=== PATIENT | female | born 1945 | race Caucasian/White ===

== ENCOUNTER 2019-08-26 15:09 | Emergency (ER) | payer OTHER ==
--- NOTE | 2019-08-26 15:46 | RAD REPORT ---
EXAM DESCRIPTION: RAD - Chest Single View - 08/26/2019 3:37 pm CLINICAL HISTORY: Left-sided chest pain COMPARISON: October 2014 TECHNIQUE: AP portable chest image was obtained 1530 hours . FINDINGS: Lung volumes are low. No failure, infiltrate or mass identifiable. Heart and vasculature a re normal. No measurable pleural effusion and no pneumothorax. No acute bony abnormality seen. No acu te aortic findings suspected. IMPRESSION: No acute cardiopulmonary process.
[2019-08-26] MEDS ORDERED: NA CHLORIDE 0.9% 1,000 ML ONE (15:51)
[2019-08-26] MEDS ORDERED: ASPIRIN EC 81 MG TAB PO ONE (15:51)
[2019-08-26 15:52] LABS: Absolute Lymphocytes (CBC) 1.9 K/uL (0.7-4.9); Basophils % 0.6 % (0-1.3); Hematocrit 38.4 % (36.0-45.0); Lymphocytes % 28.8 % (15.3-44.8); MPV 9.4 fL (7.6-11.3); RBC Red Blood Cell Count 4.05 M/uL (3.86-4.86)
[2019-08-26 15:53] LABS: Protime INR 0.96
[2019-08-26 16:14] LABS: ALT/SGPT 18 U/L (12-78); AST/SGOT 16 U/L (15-37); Albumin 3.9 g/dL (3.4-5.0); Alkaline Phosphatase 63 U/L (45-117); BUN Blood Urea Nitrogen 15 mg/dL (7-18); Bicarbonate 29 mmol/L (21-32); Bilirubin Direct 0.1 mg/dL (0-0.2); Bilirubin Total 0.3 mg/dL (0.2-1.0); Glucose Level 130 mg/dL (74-106); NT PRO-BNP 113 pg/mL (<125); Potassium 3.4 mmol/L (3.5-5.1); Sodium Level 143 mmol/L (136-145); Troponin (Emerg Dept Use Only) < 0.02 ng/mL (0.0-0.045)
[2019-08-26] MEDS ORDERED: MORPHINE 2 MG/ML SYR ONE (16:42)
[2019-08-26] MEDS ORDERED: KETOROLAC 30 MG/ML INJ ONE (16:42)
[2019-08-26] MEDS ORDERED: ONDANSETRON 4 MG/2 ML VIAL ONE (16:42)
--- NOTE | 2019-08-26 17:08 | EKG ---
Test Date: 2019-08-26 Test Time: 15:21:48 Parking Analyst: NARCISO MEASUREMENT RESULTS: Intervals: Rate: 67 RI: 198 QRSD: 92 QT: 398 QTc: 420 [place]: P: 68 RI: 198 QRS: -11 T: 53 INTERPRETIVE STATEMENTS: Sinus rhythm with premature supraventricular complexes T wave abnormality, consider anterior ischemia Abnormal ECG No previous ECG available for comparison Electronically Signed On 08-26-19 17:08:22 CDT by Yifan Yin
[2019-08-26] MEDS ORDERED: POTASSIUM 25 MEQ EFFERV TAB ONE (17:14)
--- NOTE | 2019-08-26 17:46 | RAD REPORT ---
EXAM DESCRIPTION: CT - Angio Aorta For Dissection - 08/26/2019 5:23 pm CLINICAL HISTORY: CHEST PAIN COMPARISON: Chest films same date TECHNIQUE: Dynamically enhanced 3 mm thick images of the chest, abdomen, and upper pelvis were obtai kilo during administration of approximately 150mL Isovue 370 IV contrast. Sagittal and coronal reconst ruction images were generated using MIP and reviewed. Exam utilizes a protocol to evaluate entire cou rse of the aorta. All CT scans are performed using dose optimization technique as appropriate and may include automated exposure control or mA/KV adjustment according to patient size. FINDINGS: Aorta is normal in diameter with no dissection or other acute aortic findings. Reconstruct ion images show no significant findings. Pulmonary arteries are normal. No cardiomegaly, pericardial thickening or pericardial effusion. No mass or infiltrate in the lung parenchyma. No pleural thickening, pleural effusion or pneumothorax . No abnormal mediastinal or hilar mass or lymphadenopathy seen. No chest wall mass or abnormal axillar y lymphadenopathy. Celiac, SMA and renal arteries show no suspicious findings. Solid abdominal viscera and bowel show no significant findings. No mass or abnormal lymphadenopathy. No free air, free fluid or inflammatory stranding. No urinary bladder abnormality. Uterus is absent. No adnexal abnormality. Bony degenerative change seen. No acute or destructive bone process. IMPRESSION: Negative CT scan of the aorta. No other significant findings on chest, abdomen and upper pelvis examination.
--- NOTE | 2019-08-26 17:54 | EDPHYS ---
Physician Documentation [facility] Name: Lyudmila Carranza Age: 73 yrs Sex: Female : 1945 Arrival Date: 08/26/2019 Time: 15:10 Bed 27 Private MD: Nicole Zabala F ED Physician Chandra Hoskins HPI: 08/26 16:36 This 73 yrs old Female presents to ER via Ambulatory with complaints of Chest nano Pain. 16:36 The patient or guardian reports chest pain that is located primarily in the anterior nano chest wall, left. Historical: - Allergies: 15:23 Demerol; la1 - Home Meds: 15:23 amlodipine 5 mg tab 1 tab once daily [Active]; pravastatin 80 mg oral tab 1 tab once la1 daily [Active]; - PMHx: 15:23 Hypertension; High Cholesterol; la1 - Immunization history:: Adult Immunizations up to date. - Social history:: Smoking status: Patient/guardian denies using tobacco. - Ebola Screening: : No symptoms or risks identified at this time. ROS: 16:36 Constitutional: Negative for fever, chills, and weight loss, Eyes: Negative for injury, nano pain, redness, and discharge, ENT: Negative for injury, pain, and discharge, Neck: Negative for injury, pain, and swelling, Cardiovascular: Negative for chest pain, palpitations, and edema, Abdomen/GI: Negative for abdominal pain, nausea, vomiting, diarrhea, and constipation, : Negative for injury, bleeding, discharge, and swelling, MS/Extremity: Negative for injury and deformity, Skin: Negative for injury, rash, and discoloration, Neuro: Negative for headache, weakness, numbness, tingling, and seizure, Psych: Negative for depression, anxiety, suicide ideation, homicidal ideation, and hallucinations, Allergy/Immunology: Negative for hives, rash, and allergies, Endocrine: Negative for neck swelling, polydipsia, polyuria, polyphagia, and marked weight changes, Hematologic/Lymphatic: Negative for swollen nodes, abnormal bleeding, and unusual bruising. 16:36 Respiratory: Positive for 16:36 Abdomen/GI: Negative for abdominal pain. 16:36 Back: Positive for pain at rest, pain with movement, of the left scapular area and thoracic area. Exam: 16:36 Constitutional: This is a well developed, well nourished patient who is awake, alert, nano and in no acute distress. Head/Face: Normocephalic, atraumatic. Eyes: Pupils equal round and reactive to light, extra-ocular motions intact. Lids and lashes normal. Conjunctiva and sclera are non-icteric and not injected. Cornea within normal limits. Periorbital areas with no swelling, redness, or edema. ENT: Nares patent. No nasal discharge, no septal abnormalities noted. Tympanic membranes are normal and external auditory canals are clear. Oropharynx with no redness, swelling, or masses, exudates, or evidence of obstruction, uvula midline. Mucous membranes moist. Neck: Trachea midline, no thyromegaly or masses palpated, and no cervical lymphadenopathy. Supple, full range of motion without nuchal rigidity, or vertebral point tenderness. No Meningismus. Cardiovascular: Regular rate and rhythm with a normal S1 and S2. No gallops, murmurs, or rubs. Normal PMI, no JVD. No pulse deficits. Respiratory: Lungs have equal breath sounds bilaterally, clear to auscultation and percussion. No rales, rhonchi or wheezes noted. No increased work of breathing, no retractions or nasal flaring. Abdomen/GI: Soft, non-tender, with normal bowel sounds. No distension or tympany. No guarding or rebound. No evidence of tenderness throughout. Back: No spinal tenderness. No costovertebral tenderness. Full range of motion. Female : Normal external genitalia. Skin: Warm, dry with normal turgor. Normal color with no rashes, no lesions, and no evidence of cellulitis. MS/ Extremity: Pulses equal, no cyanosis. Neurovascular intact. Full, normal range of motion. Neuro: Awake and alert, GCS 15, oriented to person, place, time, and situation. Cranial nerves II-XII grossly intact. Motor strength 5/5 in all extremities. Sensory grossly intact. Cerebellar exam normal. Normal gait. Psych: Awake, alert, with orientation to person, place and time. Behavior, mood, and affect are within normal limits. 16:36 Chest/axilla: Exam negative for tenderness, Inspection: normal, Palpation: tenderness, that is mild, that is moderate, of the left lateral posterior chest. 19:27 Cardiovascular: Rate: normal, Rhythm: regular, Pulses: no pulse deficits are nano appreciated, Heart sounds: normal, normal S1and S2, no S3 or S4, no murmur, no rub, no gallop, Edema: is not appreciated, JVD: is not appreciated. 19:27 Musculoskeletal/extremity: DVT Exam: No signs of deep vein thrombosis. no pain, no swelling, no tenderness, negative Homans' sign noted on exam, no appreciated bluish discoloration, no erythema, no increased warmth. Vital Signs: 15:24 BP 168 / 84; Pulse 78; Resp 16; Temp 97.2; Pulse Ox 100% on R/A; Weight 68.04 kg; la1 Height 5 ft. 2 in. (157.48 cm); 16:29 BP 156 / 72; Pulse 68; Resp 17 S; Pulse Ox 98% on R/A; ca1 17:50 BP 126 / 66; Pulse 67; Resp 14 S; Pulse Ox 100% ; aj1 18:21 BP 139 / 68; Pulse 63; Resp 17; Pulse Ox 98% on R/A; ca1 19:36 BP 134 / 69; Pulse 64; Resp 17 S; Pulse Ox 100% on R/A; ca1 15:24 Body Mass Index 27.44 (68.04 kg, 157.48 cm) la1 MDM: 15:45 Patient medically screened. [facility] 16:38 Data reviewed: vital signs, nurses notes, lab test result(s), EKG, radiologic studies. [facility] 08/26 15:21 Order name: Basic Metabolic Panel; Complete Time: 16:34 [facility] 08/26 15:21 Order name: CBC with Diff; Complete Time: 16:34 [facility] 08/26 15:21 Order name: LFT's; Complete Time: 16:34 [facility] 08/26 15:21 Order name: Magnesium; Complete Time: 16:34 [facility] 08/26 15:21 Order name: NT PRO-BNP; Complete Time: 16:34 [facility] 08/26 15:21 Order name: PT-INR; Complete Time: 16:34 [facility] 08/26 15:21 Order name: Troponin (emerg Dept Use Only); Complete Time: 16:34 [facility] 08/26 15:21 Order name: XRAY Chest (1 view); Complete Time: 16:34 [facility] 08/26 15:45 Order name: D-Dimer; Complete Time: 16:34 [facility] 08/26 16:44 Order name: Troponin (emerg Dept Use Only): 500pm; Complete Time: 17:43 [facility] 08/26 17:24 Order name: Urine Culture [facility] 08/26 17:48 Order name: Urine Dipstick--Ancillary (enter results); Complete Time: 18:58 08/26 18:35 Order name: Troponin (emerg Dept Use Only); Complete Time: 19:19 08/26 15:21 Order name: EKG; Complete Time: 15:22 [facility] 08/26 15:21 Order name: Cardiac monitoring; Complete Time: 15:29 [facility] 08/26 15:21 Order name: EKG - Nurse/Tech; Complete Time: 15:24 [facility] 08/26 15:21 Order name: IV Saline Lock; Complete Time: 15:41 [facility] 08/26 15:21 Order name: Labs collected and sent; Complete Time: 15:41 [facility] 08/26 16:40 Order name: CT Aorta for Dissection: pe and dissection; Complete Time: 18:58 [facility] 08/26 17:57 Order name: EKG; Complete Time: 17:58 [facility] 08/26 18:35 Order name: EKG; Complete Time: 18:35 [facility] 08/26 15:21 Order name: O2 Per Protocol; Complete Time: 15:30 [facility] 08/26 15:21 Order name: O2 Sat Monitoring; Complete Time: 15:30 [facility] 08/26 17:24 Order name: Urine Dipstick-Ancillary (obtain specimen); Complete Time: 17:48 [facility] 08/26 17:57 Order name: EKG - Nurse/Tech; Complete Time: 18:03 [facility] 08/26 18:35 Order name: EKG - Nurse/Tech; Complete Time: 19:11 [facility] Administered Medications: 15:50 Drug: NS 0.9% 1000 ml Route: IV; Rate: 125 ml/hr; Site: right antecubital; ca1 19:38 Follow up: IV Status: Order to discontinue infusion ca1 15:50 Drug: Aspirin Chewable Tablet 162 mg Route: PO; ca1 16:30 Follow up: Response: No adverse reaction ca1 16:46 Drug: Zofran 4 mg Route: IVP; Site: right antecubital; ca1 17:16 Follow up: Response: No adverse reaction; Nausea is decreased ca1 16:48 Drug: morphine 2 mg Route: IVP; Site: right antecubital; ca1 17:16 Follow up: Response: No adverse reaction; Pain is decreased ca1 16:51 Drug: TORadol 30 mg Route: IVP; Site: right antecubital; ca1 17:16 Follow up: Response: No adverse reaction; Pain is decreased ca1 17:40 Drug: Potassium Effervescent Tablet 25 mEq Route: PO; ca1 18:02 Follow up: Response: No adverse reaction ca1 19:35 Drug: ToPROL XL 25 mg Route: PO; ca1 19:54 Follow up: Response: No adverse reaction ca1 19:53 Not Given (Patient Refused): Valium 5 mg PO once ca1 Disposition: 08/26/19 19:23 Discharged to Home. Impression: Chest pain, unspecified - wall, Pleurisy, Essential (primary) hypertension, Hypokalemia. - Condition is Stable. - Discharge Instructions: Nonspecific Chest Pain, Chest Wall Pain, Potassium Content of Foods, Hypertension, Nonspecific Chest Pain, Vqck-aw-Scfr, Hypertension, Xdcb-zw-Pzra, How to Take Your Blood Pressure, Fvvm-gn-Lgen, Aspirin and Your Heart, Pleurisy, Yyri-jy-Mkjv, Hypokalemia, Managing Your Hypertension. - Prescriptions for Ibuprofen 600 mg Oral Tablet - take 1 tablet by ORAL route every 6 hours As needed take with food; 24 tablet. Tylenol- Codeine #3 300-30 mg Oral Tablet - take 2 tablets by ORAL route every 6 hours As needed; 24 tablet. Valium 5 mg Oral Tablet - take 1 tablet by ORAL route every 8 hours As needed; 20 tablet. Toprol XL 25 mg Oral Tablet - take 1 tablet by ORAL route once daily; 20 tablet. - Medication Reconciliation Form, Thank You Letter, Antibiotic Education, Prescription Opioid Use form. - Follow up: Nicole Zabala; When: 2 - 3 days; Reason: Recheck today's complaints, Continuance of care, Re-evaluation by your physician. Follow up: Marcos Babb MD; When: 2 - 3 days; Reason: Recheck today's complaints, Re-evaluation by your physician. - Problem is new. - Symptoms have improved. Signatures: Dispatcher [employer] EDChandra Camarena MD MD cha Attema, Lee, RN RN la1 Darling Saavedra RN RN ca1 Corrections: (The following items were deleted from the chart) 16:42 16:36 Angio Aorta For Dissection+CT.YOANDY ordered. [facility] 17:53 17:53 08/26/2019 17:53 Discharged to Home. Impression: Chest pain, unspecified - wall; nano Pleurisy; Essential (primary) hypertension; Hypokalemia. Condition is Stable. Discharge Instructions: Nonspecific Chest Pain, Chest Wall Pain, Hypertension, Chest Wall Pain, Rtqn-po-Hpir, Nonspecific Chest Pain, Hder-do-Gcej, Hypertension, Bnvp-jg-Gvde, How to Take Your Blood Pressure, Dvbf-cd-Wgvb, Aspirin and Your Heart, Managing Your Hypertension, Potassium Content of Foods, Hypokalemia. Prescriptions for Ibuprofen 600 mg Oral Tablet - take 1 tablet by ORAL route every 6 hours As needed take with food; 24 tablet, Tylenol-Codeine #3 300-30 mg Oral Tablet - take 2 tablets by ORAL route every 6 hours As needed; 24 tablet, Valium 5 mg Oral Tablet - take 1 tablet by ORAL route every 8 hours As needed; 20 tablet. and Forms are Medication Reconciliation Form, Thank You Letter, Antibiotic Education, Prescription Opioid Use. Follow up: Nicole Zabala; When: 2 - 3 days; Reason: Recheck today's complaints, Continuance of care, Re-evaluation by your physician. Problem is new. Symptoms have improved. nano 18:34 17:53 08/26/2019 17:53 Discharged to Home. Impression: Chest pain, unspecified - wall; nano Pleurisy; Essential (primary) hypertension; Hypokalemia. Condition is Stable. Discharge Instructions: Nonspecific Chest Pain, Chest Wall Pain, Hypertension, Chest Wall Pain, Dmhb-tf-Gdyu, Nonspecific Chest Pain, Szjr-by-Ojww, Hypertension, Pdhq-jf-Yexr, How to Take Your Blood Pressure, Xwyj-eu-Wnlb, Aspirin and Your Heart, Managing Your Hypertension, Potassium Content of Foods, Hypokalemia. Prescriptions for Ibuprofen 600 mg Oral Tablet - take 1 tablet by ORAL route every 6 hours As needed take with food; 24 tablet, Tylenol-Codeine #3 300-30 mg Oral Tablet - take 2 tablets by ORAL route every 6 hours As needed; 24 tablet, Valium 5 mg Oral Tablet - take 1 tablet by ORAL route every 8 hours As needed; 20 tablet. and Forms are Medication Reconciliation Form, Thank You Letter, Antibiotic Education, Prescription Opioid Use. Follow up: Eranfaby Vj; When: 2 - 3 days; Reason: Recheck today's complaints, Continuance of care, Re-evaluation by your physician. Follow up: Marcos Babb; When: 2 - 3 days; Reason: Recheck today's complaints, Re-evaluation by your physician. Problem is new. Symptoms have improved. [facility] 19:28 19:23 08/26/2019 19:23 Discharged to Home. Impression: Chest pain, unspecified - wall; nano Pleurisy; Essential (primary) hypertension; Hypokalemia. Condition is Stable. Prescriptions for Ibuprofen 600 mg Oral Tablet - take 1 tablet by ORAL route every 6 hours As needed take with food; 24 tablet, Tylenol-Codeine #3 300-30 mg Oral Tablet - take 2 tablets by ORAL route every 6 hours As needed; 24 tablet, Valium 5 mg Oral Tablet - take 1 tablet by ORAL route every 8 hours As needed; 20 tablet. and Forms are Medication Reconciliation Form, Thank You Letter, Antibiotic Education, Prescription Opioid Use. Follow up: Nicole Zabala; When: 2 - 3 days; Reason: Recheck today's complaints, Continuance of care, Re-evaluation by your physician. Problem is new. Symptoms have improved. [facility] 19:57 19:28 08/26/2019 19:23 Discharged to Home. Impression: Chest pain, unspecified - wall; ca1 Pleurisy; Essential (primary) hypertension; Hypokalemia. Condition is Stable. Discharge Instructions: Nonspecific Chest Pain, Chest Wall Pain, Potassium Content of Foods, Hypertension, Nonspecific Chest Pain, Nbdj-gn-Zwlf, Hypertension, Brpx-yh-Mhpo, How to Take Your Blood Pressure, Ndjo-yl-Xsxe, Aspirin and Your Heart, Pleurisy, Yupl-vq-Edzs, Hypokalemia, Managing Your Hypertension. Prescriptions for Ibuprofen 600 mg Oral Tablet - take 1 tablet by ORAL route every 6 hours As needed take with food; 24 tablet, Tylenol-Codeine #3 300-30 mg Oral Tablet - take 2 tablets by ORAL route every 6 hours As needed; 24 tablet, Valium 5 mg Oral Tablet - take 1 tablet by ORAL route every 8 hours As needed; 20 tablet, Ibuprofen 600 mg Oral Tablet - take 1 tablet by ORAL route every 6 hours As needed take with food; 24 tablet, Tylenol-Codeine #3 300-30 mg Oral Tablet - take 2 tablets by ORAL route every 6 hours As needed; 24 tablet, Valium 5 mg Oral Tablet - take 1 tablet by ORAL route every 8 hours As needed; 20 tablet, Toprol XL 25 mg Oral Tablet - take 1 tablet by ORAL route once daily; 20 tablet. and Forms are Medication Reconciliation Form, Thank You Letter, Antibiotic Education, Prescription Opioid Use. Follow up: Nicole Zabala; When: 2 - 3 days; Reason: Recheck today's complaints, Continuance of care, Re-evaluation by your physician. Follow up: Marcos Babb; When: 2 - 3 days; Reason: Recheck today's complaints, Re-evaluation by your physician. Problem is new. Symptoms have improved. nano
--- NOTE | 2019-08-26 17:54 | ER ---
Nurse's Notes [facility] Name: Lyudmila Carranza Age: 73 yrs Sex: Female : 1945 Arrival Date: 08/26/2019 Time: 15:10 Bed 27 Private MD: Nicole Zabala F Diagnosis: Chest pain, unspecified-wall;Pleurisy;Essential (primary) hypertension;Hypokalemia Presentation: 08/26 15:21 Presenting complaint: Patient states: sharp left sided chest pain for the last week la1 that radiates to back. Transition of care: patient was not received from another setting of care. Onset of symptoms was August 26, 2019. Risk Assessment: Do you want to hurt yourself or someone else? Patient reports no desire to harm self or others. Initial Sepsis Screen: Does the patient meet any 2 criteria? No. Patient's initial sepsis screen is negative. Does the patient have a suspected source of infection? No. Patient's initial sepsis screen is negative. Care prior to arrival: None. 15:21 Method Of Arrival: Ambulatory la1 15:21 Acuity: HI 2 la1 Historical: - Allergies: 15:23 Demerol; la1 - Home Meds: 15:23 amlodipine 5 mg tab 1 tab once daily [Active]; pravastatin 80 mg oral tab 1 tab once la1 daily [Active]; - PMHx: 15:23 Hypertension; High Cholesterol; la1 - Immunization history:: Adult Immunizations up to date. - Social history:: Smoking status: Patient/guardian denies using tobacco. - Ebola Screening: : No symptoms or risks identified at this time. Screenin:30 Abuse screen: Denies threats or abuse. Denies injuries from another. Nutritional ca1 screening: No deficits noted. Tuberculosis screening: No symptoms or risk factors identified. Fall Risk IV access (20 points). Assessment: 15:30 General: Appears in no apparent distress. comfortable, Behavior is calm, cooperative, ca1 appropriate for age. Pain: Complains of pain in anterior aspect of left upper chest Pain radiates to left scapular area Pain currently is 7 out of 10 on a pain scale. Quality of pain is described as sharp, stabbing, Pain began a week ago Is intermittent. Neuro: Level of Consciousness is awake, alert, obeys commands, Oriented to person, place, time, situation, Appropriate for age. Cardiovascular: Heart tones S1 S2 present Capillary refill < 3 seconds Patient's skin is warm and dry. Rhythm is sinus rhythm. Respiratory: Airway is patent Respiratory effort is even, unlabored, Respiratory pattern is regular, symmetrical, Breath sounds are clear bilaterally. GI: Abdomen is flat, non-distended, Bowel sounds present X 4 quads. Abd is soft and non tender X 4 quads. : No deficits noted. No signs and/or symptoms were reported regarding the genitourinary system. EENT: No deficits noted. No signs and/or symptoms were reported regarding the EENT system. Derm: Skin is intact, is healthy with good turgor, Skin is pink, warm \T\ dry. Musculoskeletal: Circulation, motion, and sensation intact. Capillary refill < 3 seconds, Range of motion: intact in all extremities. 16:29 Reassessment: Patient appears in no apparent distress at this time. Patient and/or ca1 family updated on plan of care and expected duration. Pain level reassessed. Patient is alert, oriented x 3, equal unlabored respirations, skin warm/dry/pink. 17:49 Reassessment: Patient appears in no apparent distress at this time. Patient and/or ca1 family updated on plan of care and expected duration. Pain level reassessed. Patient is alert, oriented x 3, equal unlabored respirations, skin warm/dry/pink. 18:21 Reassessment: Patient appears in no apparent distress at this time. Patient is alert, ca1 oriented x 3, equal unlabored respirations, skin warm/dry/pink. Repeat Trop and EKG done. Followed up on provider. says he will talk to pt. 18:42 Reassessment: For repeat EKG and Trop at 1900, as ordered by . ca1 19:36 Reassessment: Patient appears in no apparent distress at this time. Patient is alert, ca1 oriented x 3, equal unlabored respirations, skin warm/dry/pink. Dr. Hoskins at bedside discussing results of labs and EKG results. Vital Signs: 15:24 BP 168 / 84; Pulse 78; Resp 16; Temp 97.2; Pulse Ox 100% on R/A; Weight 68.04 kg; la1 Height 5 ft. 2 in. (157.48 cm); 16:29 BP 156 / 72; Pulse 68; Resp 17 S; Pulse Ox 98% on R/A; ca1 17:50 BP 126 / 66; Pulse 67; Resp 14 S; Pulse Ox 100% ; aj1 18:21 BP 139 / 68; Pulse 63; Resp 17; Pulse Ox 98% on R/A; ca1 19:36 BP 134 / 69; Pulse 64; Resp 17 S; Pulse Ox 100% on R/A; ca1 15:24 Body Mass Index 27.44 (68.04 kg, 157.48 cm) la1 ED Course: 15:10 Patient arrived in ED. mr 15:10 Nicole Zabala MD is Private Physician. mr 15:22 Triage completed. la1 15:24 Arm band placed on left wrist. la1 15:25 Calvin Montague, SARAH is Primary Nurse. la1 15:28 EKG done, by mechanical technologist. reviewed by Chandra Hoskins MD. sm3 15:30 Patient has correct armband on for positive identification. Placed in gown. Bed in low ca1 position. Call light in reach. Side rails up X 1. child monitor on. Pulse ox on. NIBP on. Warm blanket given. 15:30 Patient maintains SpO2 saturation greater than 95% on room air. ca1 15:39 XRAY Chest (1 view) In Process Unspecified. EDMS 15:41 No provider procedures requiring assistance completed. Initial lab(s) drawn, by me, ca1 sent to lab. Inserted saline lock: 22 gauge in right antecubital area, using aseptic technique. Blood collected. 15:45 Chandra Hoskins MD is Attending Physician. nano 15:48 Basic Metabolic Panel Sent. ca1 15:48 CBC with Diff Sent. ca1 15:48 LFT's Sent. ca1 15:48 Magnesium Sent. ca1 15:48 NT PRO-BNP Sent. ca1 15:48 PT-INR Sent. ca1 15:48 Troponin (emerg Dept Use Only) Sent. ca1 17:05 Repeat lab(s) drawn. by me, sent to lab. jp3 17:07 Troponin (emerg Dept Use Only): 500pm Sent. jp3 17:24 CT Aorta for Dissection: pe and dissection In Process Unspecified. EDMS 17:53 Nicole Zabala MD is Referral Physician. nano 17:53 Marcos Babb MD is Referral Physician. nano 19:03 Repeat lab(s) drawn. by me, sent to lab. jp3 19:04 EKG done, by ED staff, reviewed by Chandra Hoskins MD. jp3 19:11 Troponin (emerg Dept Use Only) Sent. ca1 19:23 Nicole Zabala MD is Referral Physician. nano 19:28 Marcos Babb MD is Referral Physician. nano 19:52 IV discontinued, intact, bleeding controlled, No redness/swelling at site. Pressure ca1 dressing applied. Administered Medications: 15:50 Drug: NS 0.9% 1000 ml Route: IV; Rate: 125 ml/hr; Site: right antecubital; ca1 19:38 Follow up: IV Status: Order to discontinue infusion ca1 15:50 Drug: Aspirin Chewable Tablet 162 mg Route: PO; ca1 16:30 Follow up: Response: No adverse reaction ca1 16:46 Drug: Zofran 4 mg Route: IVP; Site: right antecubital; ca1 17:16 Follow up: Response: No adverse reaction; Nausea is decreased ca1 16:48 Drug: morphine 2 mg Route: IVP; Site: right antecubital; ca1 17:16 Follow up: Response: No adverse reaction; Pain is decreased ca1 16:51 Drug: TORadol 30 mg Route: IVP; Site: right antecubital; ca1 17:16 Follow up: Response: No adverse reaction; Pain is decreased ca1 17:40 Drug: Potassium Effervescent Tablet 25 mEq Route: PO; ca1 18:02 Follow up: Response: No adverse reaction ca1 19:35 Drug: ToPROL XL 25 mg Route: PO; ca1 19:54 Follow up: Response: No adverse reaction ca1 19:53 Not Given (Patient Refused): Valium 5 mg PO once ca1 Outcome: 17:53 Discharge ordered by . nano 19:23 Discharge ordered by . nano 19:54 Discharged to home ambulatory, with significant other. ca1 19:54 Condition: stable 19:54 Discharge instructions given to patient, Instructed on discharge instructions, follow up and referral plans. medication usage, Demonstrated understanding of instructions, follow-up care, medications, Prescriptions given X 4. 19:57 Patient left the ED. ca1 Signatures: Dispatcher [employer] EDMS Nette Vasquez RN RN aj1 Chandra Hoskins MD MD cha Rivera, Mary mr Attema, Lee, RN RN la1 Hilda Arevalo sm3 Rustam Quezada jp3 Darling Saavedra, RN RN ca1
[2019-08-26 17:58] LABS: Urine Blood NEGATIVE (NEG); Urine Glucose NEGATIVE (NEG); Urine Protein NEGATIVE (NEG)
[2019-08-26] MEDS ORDERED: METOPROLOL XL 50 MG TAB PO ONE (19:30)
--- NOTE | 2019-08-26 19:47 | EKG ---
Test Date: 2019-08-26 Test Time: 18:05:34 Prevention Coordinator: TENA MEASUREMENT RESULTS: Intervals: Rate: 66 ME: 194 QRSD: 88 QT: 418 QTc: 438 [place]: P: 83 ME: 194 QRS: 54 T: 68 INTERPRETIVE STATEMENTS: Normal sinus rhythm with sinus arrhythmia normal ECG Compared to ECG 08/26/2019 15:21:48 Atrial premature complex(es) no longer present T-wave abnormality no longer present Possible ischemia no longer present Electronically Signed On 08-26-19 19:46:38 CDT by Yifan Yin
[2019-08-26 20:50] VITALS: TEMP 97.2
[2019-08-26 20:55] VITALS: BP 134/69; O2SAT 100
--- NOTE | 2019-08-27 09:35 | EKG ---
Test Date: 2019-08-26 Test Time: 18:58:10 Foundation Engineer: TENA MEASUREMENT RESULTS: Intervals: Rate: 64 TX: 196 QRSD: 86 QT: 428 QTc: 441 [place]: P: 78 TX: 196 QRS: 52 T: 68 INTERPRETIVE STATEMENTS: Normal sinus rhythm normal ECG Compared to ECG 08/26/2019 18:05:34 Sinus arrhythmia no longer present Electronically Signed On 08-27-19 09:34:58 CDT by Yifan Yin
== END 2019-08-26 19:57 | disposition home or self-care (01) ==
LOC: ER 15:09
DX: R09.1 Pleurisy (principal); E87.6 Hypokalemia; I10 Essential (primary) hypertension; Z88.5 Allergy status to narcotic agent
CPT/HCPCS: 96361; 93005 ×3; 87088; 85025; 87086; 80048; 36415; 83735; 85610; 85379; 80076; 81003; 84484 ×3; 83880; 71275; 74175; 71045; 96375; 96374; 99285; Q9967; J2270; J7030; J2405

== ENCOUNTER 2020-09-17 07:05 | Day surgery (SDC) | payer OTHER ==
--- NOTE | 2020-09-15 12:59 | EKG ---
Test Date: 2020-09-15 Test Time: 12:00:52 Stitcher Around: DANIELITO MEASUREMENT RESULTS: Intervals: Rate: 59 MI: 192 QRSD: 90 QT: 410 QTc: 405 [place]: P: 75 MI: 192 QRS: 10 T: 44 INTERPRETIVE STATEMENTS: Sinus bradycardia Otherwise normal ECG Compared to ECG 08/26/2019 18:58:10 Sinus rhythm no longer present Electronically Signed On 09-15-20 12:59:08 CDT by Marcos Babb
--- OUTSIDE RECORDS SUMMARY | 2020-09-17 07:08 | XMS REPORT | Summary of Care ---
:1945 Author Organization [facility] - Health Address [address] [place] [address] Care Team Providers Name Role Phone Vj, Marichuy Primary Care Provider Encounter Details Date Type Department Care Team Description 08/04/2020 Orders Only [facility] Doctor Unassigned, No [address] [facility] Name [place] [id number] [address] [place] [id number] Allergies Active Allergy Reactions Severity Noted Date Comments Penicillin Unknown - See comments 04/05/2017 documented as of this encounter (statuses as of 08/04/2020) Medications Medication Sig Dispensed Refills Start Date End Date Status amLODIPine 5 mg tablet 0 03/15/2017 Active PAZEO 0.7 % Drop 0 03/09/2017 Ac tive [id number]-fish Take by mouth. 0 Active oil-D3 (VITAMIN-D + OMEGA-3) 350 mg-400 mg- 1,000 unit Cap B COMPLEX W-C Take by mouth. 0 Active NO.20/FOLIC ACID (B COMPLEX & C NO.20-FOLIC ACID ORAL) BACILLUS COAGULANS Take by mouth. 0 Active (PROBIOTIC, B. COAGULANS, ORAL) ASCORBIC ACID/VITAMIN Take by mouth. 0 Active E/BIOTIN (HAIR, SKIN, NAILS WITH BIOTIN ORAL) ASCORBATE CALCIUM Take by mouth. 0 Active (VITAMIN C ORAL) omeprazole 20 mg TK 1 C PO BID 0 05/30/2017 Active capsule Diclofenac Sodium Apply to area(s) 100 g 1 08/20/2017 Active (VOLTAREN) 1 % gel 4 (four) times daily. 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 Visit Phlebotomy Joseph Newman MD [id number] [place] [address] [place], [place] [facility] Main Health Maintenance Due Date Last Done Comments HEPATITIS C (HCV) SCREEN 1945 Depression Screening 1958 DTaP,Tdap,and Td Vaccines (1 - Tdap) 1965 Breast Cancer Screening (MAMMOGRAM) 1986 COLON CANCER SCREENING ANNUAL FIT/FOBT 1996 COLON CANCER SCREENING FIT DNA EVERY 3 YEARS 1996 COLON CANCER SCREENING SIGMOIDOSCOPY EVERY 5 YEARS 1996 COLONOSCOPY 1996 Colorectal Cancer Screening 1996 Zoster Recombinant Vaccine (SHINGRIX) (1 of 2) 1996 Medicare Wellness Visit 2011 Osteoporosis Screening 2011 PNEUMOCOCCAL VACCINES 65+ (1 of 1 - PPSV23) 2011 INFLUENZA VACCINE (#1) 2020 documented as of this encounter Procedures Procedure Name Priority Date/Time Associated Diagnosis Comme nts ASSIGNMENT OF BENEFITS Routine 08/04/2020 11:40 AM CDT documented in this encounter Results Not on filedocumented in this encounter Insurance Payer Benefit Plan / Subscriber ID Effective Phone Address T ype Group Dates MEDICARE MEDICARE PART [id number] 2011-Pres [phone] Medicare A & B ent [id number] [place] [id number] COMMERCIAL COMMERCIAL [id number] 2018-Pres HMO /PPO/POS NON-CONTRACT NON-CONTRACT ent GENERIC GENERIC documented as of this encounter
--- OUTSIDE RECORDS SUMMARY | 2020-09-17 07:08 | XMS REPORT | Summary of Care ---
:1945 Author Organization [facility] Address [address] [place] [address] Care Team Providers Name Role Phone VjMarichuy Primary Care Provider Reason for Visit Reason Comments LAB WORK Auth/Cert Status Reason Specialty Diagnoses / Procedures Referred By C ontact Referred To Contact Phlebotomy Diagnoses Cervicalgia M54.2 (ICD-10-CM) - Cervicalgia Adc Pob Lab Draw Procedures CBC WITH DIFF CBC WITH DIFF Professional Office Building [address] [facility] , [address] [place] [address] Phone: Fax: Encounter Details Date Type Department Care Team Description 08/04/2020 Elevated Motorman Visit [facility] Joseph Newman MD [address] [place] [address] [id number] [place] [address] Encounter for Professional Office Pob, Adc Lab Main long-term (current) Building Phlebotomy use of o ther Lab medications (Primary Professional Office Dx) Building [address] [facility] , [address] [place] [address] Allergies Active Allergy Reactions Severity Noted Date Comments Penicillin Unknown - See comments 04/05/2017 documented as of this encounter (statuses as of 08/04/2020) Medications Medication Sig Dispensed Refills Start Date End Date Status amLODIPine 5 mg tablet 0 03/15/2017 Active PAZEO 0.7 % Drop 0 03/09/2017 Ac tive fvmsr-0t-hde-epa-fish Take by mouth. 0 Active oil-D3 (VITAMIN-D [...] Assigned at Date Recorded Not on file COVID-19 Exposure Response Date Recorded In the last month, have you been in contact with No / Unsure 08/04/2020 11:48 AM CDT someone who was confirmed or suspected to have Coronavirus / COVID-19? documented as of this encounter Last Filed Vital Signs Not on filedocumented in this encounter Nursing Notes Natasha Hudson - 08/04/2020 12:00 PM CDT Venipuncture collection performed by clean technique on the left anticubitus. Total of 1 attempts were made. Slight pressure and a bandage/dressing were applied to the site(s). The patient experienced no complications. The following specimens were processed according to instructions and sent to [facility] laboratories per lab order on today: LT BLUE SST RED LAV 1 PPT DK GREEN (LiHep) DK GREEN (SodH) ADAMS DK BLUE (K2) DK BLUE (S) ACD Blood Culture NIPT/NTD documented in this encounter Plan of Treatment Name Type Priority Associated Diagnoses Date/Ti me CBC WITH DIFF LAB Routine Encounter for long-term (cu rrent) 08/04/2020 12:03 PM CDT use of other medications Name Type Priority Associated Diagnoses Order S chedule CBC WITH DIFF LAB Routine Encounter for long-term Exp ected: 08/04/2020, (current) use of other Expir es: 08/04/2021 medications Health Maintenance Due Date Last Done Comments [...] (#1) 2020 documented as of this encounter Results Not on filedocumented in this encounter Visit Diagnoses Diagnosis Encounter for long-term (current) use of other medications - Primary documented in this encounter Insurance Payer Benefit Plan / Subscriber ID Effective Phone Address T ype Group Dates MEDICARE MEDICARE PART [id number] 2011-Pres [phone] Medicare A & B ent [id number] [place] [address] COMMERCIAL COMMERCIAL [id number] 2018-Pres HMO /PPO/POS NON-CONTRACT NON-CONTRACT ent GENERIC GENERIC documented as of this encounter
--- OUTSIDE RECORDS SUMMARY | 2020-09-17 07:08 | XMS REPORT | Continuity of Care Document ---
:1945 Author Organization [facility] t Address [address] [place] [address] [address] [place] [address] Care Team Providers Name Role Phone Pob, Lab Main Attending Clinician Unavailable Doctor Unassigned, Name Attending Clinician Unavailable Problems This patient has no known problems. Allergies, Adverse Reactions, Alerts This patient has no known allergies or adverse reactions. Medications This patient has no known medications. Procedures This patient has no known procedures. Encounters Start End Encounter Admission Attending Care Care Encounter Source Date/Time Date/Time Type Type Clinicians Facility Department ID 2020-08-04 2020-08-04 Broommaker [place] [facility] [id number] 11:49:09 12:04:09 Visit Lab Main Jannette [id number] [place] [id number] [place] [id number] [address] 2020-08-04 2020-08-04 Orders Doctor AMIRA [id number] 00:00:00 00:00:00 Only Unassigned, MISTY [id number] [place] [facility] [id number] Results This patient has no known results.
[2020-09-17] MEDS ORDERED: BUPIVACA 0.25%/EPI 0.0005% MDV 50 ML VIAL ONE ×2 (07:25→08:03)
[2020-09-17] MEDS ORDERED: CEFAZOLIN/SWI 1gm 1 GM/10 ML SYR ONE (07:36)
[2020-09-17] MEDS ORDERED: Ringers Lactate 1,000 ML IV ONE (07:36)
[2020-09-17] MEDS ORDERED: OXYMETAZOLINE HCL 0.05% 15ML NAS ONE (07:49)
[2020-09-17] MEDS ORDERED: BUPIVACAINE 0.5% Inj,MDV 50 mL VIAL ONE (07:59)
[2020-09-17] MEDS ORDERED: LIDOCAINE 1% W/EPI 1:100,000 MDV 20 ML VIAL ONE (08:02)
[2020-09-17] MEDS ORDERED: LIDOCAINE 1% MPF 5 ML VIAL ONE (08:05)
[2020-09-17] MEDS ORDERED: FENTANYL CITR 100 MCG/2 ML ONE (08:05)
[2020-09-17] MEDS ORDERED: MIDAZOLAM HCL 2 MG/2 ML INJ ONE (08:05)
[2020-09-17] MEDS ORDERED: propofoL 200 MG/20 ML VIAL IV ONE (08:05)
[2020-09-17] MEDS ORDERED: ROCURONIUM 50 MG/5 ML VIAL IV ONE (08:05)
[2020-09-17] MEDS ORDERED: ONDANSETRON 4 MG/2 ML VIAL ONE (08:48)
[2020-09-17] MEDS ORDERED: KETOROLAC 30 MG/ML INJ ONE (08:48)
[2020-09-17] MEDS ORDERED: dexAMETHasone 4 MG/ML VIAL ONE (08:49)
--- NOTE | 2020-09-17 09:10 | P.BOP ---
Preoperative diagnosis: chronic sialoadenitis, neck pain Postoperative diagnosis: same Primary procedure: right submandibular gland excision Modeling And Simulation Analyst: KAYLI RICHARDS Estimated blood loss: 20ml Specimen: Right SMG Anesthesia: General Complications: None Fluids & blood products: crystalloid 450ml Transferred to: Recovery Room Condition: Good
[2020-09-17] MEDS ORDERED: LIDOCAINE 2% MPF 5 ML VIAL ONE (09:17)
[2020-09-17] MEDS ORDERED: Mastisol Adhesive Liq ONE (09:18)
[2020-09-17] MEDS: HYDROMORPHONE HCL 1 MG/ML INJ ONE ×2 (09:29→09:34)
[2020-09-17] MEDS ORDERED: SUCCINYLCHOLINE 20 MG/ML (10 ML) IV ONE (09:40)
[2020-09-17 10:02] VITALS: BP 147/58; TEMP 96.5; O2SAT 98
--- NOTE | 2020-09-17 11:44 | OP ---
Date of Procedure: 09/17/2020 Surgeon: Myriam Anaya MD Commissioner Of Officials: Deysi Mendiola. 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 Procedure: Excision of right submandibular gland. Indication For Procedure: Ms. Olivier presented to the clinic with right submandibular pain. She di d not have any active or acute infection. There was no palpable lymph nodes or stones in the area. She was treated with conservative measures without improvement. She continued to have discomfort and we performed an ultrasound. The ultrasound demonstrated several small likely benign lymph nodes of the left neck with no evidence of submandibular tumor or submandibular stone. 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 These did not result in any improvement in her right submandibular pain, and after exhausting all other diagnostic possibilities, we opted for surgical excision of the gland with any closely associated lymph nodes i n hopes of providing the patient relief from her ongoing pain and discomfort. Description Of Procedure: The patient was brought to the operating room. She was placed under gener al anesthesia via oral endotracheal tube. The head of bed is angled about 45 degrees to give better access to the right neck. A shoulder roll was placed and the neck was extended for exposure of the r ight neck. The neck was examined in regard to a planned incision site 2 fingerbreadths below the inf erior border of the mandible, was marked, but the patient had an existing skin crease an additional 5 to 8 mm below this area. Therefore, this existing skin crease was elected as the incision site in o [facility] to aid in the overall cosmesis of her surgery. The planned incision site was injected with 4 mL of 0.5% Marcaine with epinephrine to aid in bleeding and pain control. The neck was then cleaned wi th Betadine and then draped in a sterile fashion. A 15 blade scalpel was used to make an incision th rough the skin of approximately 3.5 to 4 cm. The fatty subcutaneous tissues were divided using the B ovie electrocautery. The platysma was identified and divided using the Bovie electrocautery. The in ferior border of the submandibular gland was then identified by palpation. The fascia and fatty soft tissue overlying the inferior most aspect of the gland was divided and carefully dissected off the s urface of the gland in order to protect and avoid the marginal mandibular branch of the facial nerve. These tissues were then retracted and blunt dissection along the course of the medial, lateral and deep aspects of the gland were undertaken. The LigaSure was used to divide small vessels along the u pper posterior aspect of the gland freeing it from soft tissue attachments. The final attachment to the submandibular duct was noted and the duct was divided using the LigaSure. There was no evidence of purulence, there was no evidence or palpable stone within the hilum of the gland. The wound bed w as packed with a Ray-Adin while the specimen was carefully examined. There was no palpable mass. The re was no significant nodularity or concern for malignancy and specimen was sent to Pathology for per manent section analysis. Attention was turned back to the wound bed where after packing removal, the re was a small lymph node. This was carefully dissected and removed and sent with the main specimen. Palpation of the wound bed did not reveal any worrisome or concerning lymph nodes, and there were n o visible lymph nodes within the wound bed that warranted removal. The wound bed was thoroughly irri gated with sterile saline and inspected, but there was no evidence of any bleeding or oozing. Decisi on was made to forego placement of a drain and the wound was then closed in a layered fashion. Vicry l sutures were first used to approximate the platysma muscle in an interrupted fashion. The deep lay ers of skin were then closed using Vicryl in a buried interrupted fashion. The skin was then closed in a subcuticular fashion using a 5-0 Monocryl. The skin was cleaned and dried. Finally, Mastisol a nd Steri-Strips were applied to the incision. The patient was returned to care of Anesthesia for nino kening and extubation in the operating room, which proceeded without difficulty. Complications: None. Disposition: The patient will be discharged home later today in the care of her . She is ins tructed to use hiud-lcp-sdmjdbu pain medication for qfbz-bn-glpyysqs pain. The patient has existing home prescription for narcotics from her Pain management doctor and therefore no additional prescript ion is given. No oral antibiotics are indicated for this clean uninfected case. The patient will fo llow up with Dr. Anaya in 10 days for discussion of pathology and evaluation of healing. LING/MODL Voice ID: [id number] Report ID: [id number]
== END 2020-09-17 10:23 | disposition home or self-care (01) ==
LOC: OR 07:05
PROVIDERS: ATTEND Otolaryngology
PROC: 0CBG0ZZ Excision of Right Submaxillary Gland, Open Approach (ICD-10-PCS; principal; 2020-09-17 07:45)
DX: K11.23 Chronic sialoadenitis (principal); I10 Essential (primary) hypertension; K21.9 Gastro-esophageal reflux disease without esophagitis; E78.5 Hyperlipidemia, unspecified; M81.0 Age-related osteoporosis without current pathological fracture; Z20.828 Contact with and (suspected) exposure to other viral communicable diseases; Z88.0 Allergy status to penicillin; Z88.6 Allergy status to analgesic agent; Z82.49 Family history of ischemic heart disease and other diseases of the circulatory system; Z83.3 Family history of diabetes mellitus
CPT/HCPCS: 93005; 88307; 42440; U0002; J2704; J1100; J0330; J2250; J3010; J1170; J0690; J7120; J2405; 88305

== ENCOUNTER 2023-08-10 18:41 | Observation (INO) | payer OTHER ==
--- OUTSIDE RECORDS SUMMARY | 2023-08-10 18:44 | XMS REPORT | Continuity of Care Document ---
:1945 Author Organization [facility] t Address [address] [place] [address]. [address] [place] [address] Care Team Providers Name Role Phone VALENTIN WEBB Primary Care Physician Unavailable RADIOLOGY Attending Clinician Unavailable Radiology Attending Clinician Unavailable Pob, Adc Lab Main Attending Clinician Unavailable Nini Duff MD Attending Clinician NINI DUFF Attending Clinician Unavailable Doctor Unassigned, [place] Attending Clinician Unavailable Elzbieta Alegria DO Attending Clinician ELZBIETA ALEGRIA Attending Clinician Unavailable Say Morales MD Attending Clinician SAY MORALES Attending Clinician Unavailable VALENTIN WEBB Admitting Clinician Unavailable ELZBIETA ALEGRIA Admitting Clinician Unavailable Payers Payer Name Policy Type Policy Number Effective Date Expiration Date S [facility] [place]IC[place] PART A \\T\\ [id number] 2011 B 00:00:00 [employer] [facility] [id number] 2022 SUPPLEMENT 00:00:00 Problems Condition Condition Condition Status Onset Resolution Last Treating Co mments Source Name Details Category Date Date Treatment Clinician Date No known No known Disease Unive rs active active ity of problems problems [place] [facility] [place] Allergies, Adverse Reactions, Alerts Allergy Allergy Status Severity Reaction(s) Onset Inactive Treating Comm ents Source Name Type Date Date Clinician Penicill Propensi Active Unknown - Uni vers in ty to See comments 5-18 ity of adverse 00:00: [place] reaction 00 Medical s Branch PENICILL DRUG Active Unknown-Cmnt Un stas IN INGREDI 5-18 ity of 00:00: [place] 00 [facility] [place] Social History Social Habit Start Date Stop Date Quantity Comments Source Exposure to 2022-10-16 2022-10-26 Not sure University SARS-CoV-2 00:00:00 10:56:00 [place] [facility] (event) Branch Alcohol intake 2020-11-22 2020-11-22 Current University of 00:00:00 00:00:00 non-drinker of [facility] alcohol (finding) Branch Tobacco use and 2017-08-20 2017-08-20 Smokeless tobacco Un iversity of exposure 00:00:00 00:00:00 non-user [facility] Sex Ass[birth year] At [birth year] Universit y of 00:00:00 00:00:00 [facility] Smoking Status Start Date Stop Date Source Never smoked tobacco [facility] Medications Ordered Filled Start Stop Current Ordering Indication Dosage Frequency Signature Comments Components Source Medication Medication Date Date Medication? Clinician (SIG) Name Name iopamidol 2021-11- No [id number] 90mL 90 mL, Univers (ISOVUE 12-31 Intravenou ity o f 370-500 mL) 20:30: 19:41 s, ONCE, 1 [place] injection 00 :00 dose, On Medica l 90 mL Mon Branch 10/30/22 at 1430, Routine furosemide Yes [id number] 20mg Take 1 Univers 20 mg 1-04 tablet by ity of tablet 00:00: mouth [place] 00 every Medical morning. Branch furosemide Yes [id number] 20mg Take 1 Univers 20 mg 1-04 tablet by ity of tablet 00:00: mouth [place] 00 every Medical morning. Branch furosemide Yes [id number] 20mg Take 1 Univers 20 mg 1-04 tablet by ity of tablet 00:00: mouth [place] 00 every Medical morning. Branch furosemide Yes [id number] 20mg Take 1 Univers 20 mg 1-04 tablet by ity of tablet 00:00: mouth [place] 00 every Medical morning. Branch ASCORBATE Yes Take by [employer] rs CALCIUM 2-01 mouth. ity of (VITAMIN C 15:09: [place] ORAL) 04 [facility] Branch ASCORBATE Yes Take by Unive rs CALCIUM 2-01 mouth. ity of (VITAMIN C 15:09: [place] ORAL) 04 [facility] [place] ASCORBATE Yes Take by Unive rs CALCIUM 2-01 mouth. ity of (VITAMIN C 15:09: [place] ORAL) Medical [place] ASCORBATE Yes Take by Unive rs CALCIUM 2-01 mouth. ity of (VITAMIN C 15:09: [place] ORAL) Medical [place] ASCORBATE Yes Take by Unive rs CALCIUM 2-01 mouth. ity of (VITAMIN C 09:09: [place] ORAL) Medical [place] ASCORBATE Yes Take by Unive rs CALCIUM 2-01 mouth. ity of (VITAMIN C 09:09: [place] ORAL) Medical [place] ASCORBATE Yes Take by Unive rs CALCIUM 2-01 mouth. ity of (VITAMIN C 09:09: [place] ORAL) Medical Branch Diclofenac 2016-11 Yes Apply to Uni vers Sodium 0-02 area(s) 4 ity of (VOLTAREN) 00:00: (four) [place] 1 % gel 00 times Medical daily. Branch Diclofenac 2016-11 Yes Apply to Uni vers Sodium 0-02 area(s) 4 ity of (VOLTAREN) 00:00: (four) [place] 1 % gel 00 times Medical daily. Branch Diclofenac 2016-11 Yes Apply to Uni vers Sodium 0-02 area(s) 4 ity of (VOLTAREN) 00:00: (four) [place] 1 % gel 00 times Medical daily. Branch Diclofenac 2016-11 Yes Apply to Uni vers Sodium 0-02 area(s) 4 ity of (VOLTAREN) 00:00: (four) [place] 1 % gel 00 times Medical daily. Branch Diclofenac 2016-11 Yes Apply to Uni vers Sodium 0-02 area(s) 4 ity of (VOLTAREN) 00:00: (four) [place] 1 % gel 00 times Medical daily. Branch Diclofenac 2016-11 Yes Apply to Uni vers Sodium 0-02 area(s) 4 ity of (VOLTAREN) 00:00: (four) [place] 1 % gel 00 times Medical daily. Branch Diclofenac 2016-11 Yes Apply to Uni vers Sodium 0-02 area(s) 4 ity of (VOLTAREN) 00:00: (four) [place] 1 % gel 00 times Medical daily. Branch omeprazole Yes TK 1 C PO Un stas 20 mg 7-12 BID ity of capsule 00:00: Medical Branch omeprazole Yes TK 1 C PO Un stas 20 mg 7-12 BID ity of capsule 00:00: Medical Branch omeprazole Yes TK 1 C PO Un stas 20 mg 7-12 BID ity of capsule 00:00: Medical Branch omeprazole Yes TK 1 C PO Un stas 20 mg 7-12 BID ity of capsule 00:00: Medical Branch omeprazole Yes TK 1 C PO Un stas 20 mg 7-12 BID ity of capsule 00:00: Medical Branch omeprazole Yes TK 1 C PO Un stas 20 mg 7-12 BID ity of capsule 00:00: Medical Branch omeprazole Yes TK 1 C PO Un stas 20 mg 7-12 BID ity of capsule 00:00: Medical Branch omega-3s-dh Yes Take by Uni vers a-epa-fish 5-18 mouth. ity of oil-D3 15:45: [place] (VITAMIN-D 10 Medical + OMEGA-3) Branch 350 mg-400 mg- 1,000 unit Cap B COMPLEX Yes Take by [employer] rs W-C 5-18 mouth. ity of NO.20/FOLIC 15:45: [place] ACID (B 10 Medical COMPLEX & C Branch NO.20-FOLIC ACID ORAL) BACILLUS Yes Take by [employer] s COAGULANS 5-18 mouth. ity of (PROBIOTIC, 15:45: [place] B. 10 Medical COAGULANS, Branch ORAL) ASCORBIC Yes Take by [employer] s ACID/VITAMI 5-18 mouth. ity of N E/BIOTIN 15:45: [place] (HAIR, 10 Medical SKIN, NAILS Branch WITH BIOTIN ORAL) omega-3s-dh Yes Take by Uni vers a-epa-fish 5-18 mouth. ity of oil-D3 15:45: [place] (VITAMIN-D 10 Medical + OMEGA-3) Branch 350 mg-400 mg- 1,000 unit Cap B COMPLEX Yes Take by [employer] rs W-C 5-18 mouth. ity of NO.20/FOLIC 15:45: [place] ACID (B 10 Medical COMPLEX & C Branch NO.20-FOLIC ACID ORAL) BACILLUS 2017-0 Yes Take by Univer s COAGULANS 5-18 mouth. ity of (PROBIOTIC, 15:45: [place] B. 10 Medical COAGULANS, Branch ORAL) ASCORBIC [id number] Yes Take by Univer s ACID/VITAMI 5-18 mouth. ity of N E/BIOTIN 15:45: [place] (HAIR, 10 Medical SKIN, NAILS Branch WITH BIOTIN ORAL) omega-3s-dh Yes Take by Uni vers a-epa-fish 5-18 mouth. ity of oil-D3 15:45: [place] (VITAMIN-D 10 Medical + OMEGA-3) Branch 350 mg-400 mg- 1,000 unit Cap B COMPLEX [id number] Yes Take by Unive rs W-C 5-18 mouth. ity of NO.20/FOLIC 15:45: [place] ACID (B 10 Medical COMPLEX & C Branch NO.20-FOLIC ACID ORAL) BACILLUS 0 Yes Take by Univer s COAGULANS 5-18 mouth. ity of (PROBIOTIC, 15:45: [place] B. 10 Medical COAGULANS, Branch ORAL) ASCORBIC Yes Take by Univer s ACID/VITAMI 5-18 mouth. ity of N E/BIOTIN 15:45: [place] (HAIR, 10 Medical SKIN, NAILS Branch WITH BIOTIN ORAL) omega-3s-dh Yes Take by Uni vers a-epa-fish 5-18 mouth. ity of oil-D3 15:45: [place] (VITAMIN-D 10 Medical + OMEGA-3) Branch 350 mg-400 mg- 1,000 unit Cap B COMPLEX Yes Take by Unive rs W-C 5-18 mouth. ity of NO.20/FOLIC 15:45: [place] ACID (B 10 Medical COMPLEX & C Branch NO.20-FOLIC ACID ORAL) BACILLUS [id number] Yes Take by Univer s COAGULANS 5-18 mouth. ity of (PROBIOTIC, 15:45: [place] B. 10 Medical COAGULANS, Branch ORAL) ASCORBIC [address] Yes Take by Univer s ACID/VITAMI 5-18 mouth. ity of N E/BIOTIN 15:45: [place] (HAIR, 10 Medical SKIN, NAILS Branch WITH BIOTIN ORAL) omega-3s-dh Yes Take by Uni vers a-epa-fish 5-18 mouth. ity of oil-D3 10:45: [place] (VITAMIN-D 10 Medical + OMEGA-3) Branch 350 mg-400 mg- 1,000 unit Cap B COMPLEX Yes Take by Unive rs W-C 5-18 mouth. ity of NO.20/FOLIC 10:45: [place] ACID (B 10 Medical COMPLEX & C Branch NO.20-FOLIC ACID ORAL) BACILLUS Yes Take by Univer s COAGULANS 5-18 mouth. ity of (PROBIOTIC, 10:45: [place] B. 10 Medical COAGULANS, Branch ORAL) ASCORBIC Yes Take by Univer s ACID/VITAMI 5-18 mouth. ity of N E/BIOTIN 10:45: [place] (HAIR, 10 Medical SKIN, NAILS Branch WITH BIOTIN ORAL) omega-3s-dh Yes Take by Uni vers a-epa-fish 5-18 mouth. ity of oil-D3 10:45: [place] (VITAMIN-D 10 Medical + OMEGA-3) Branch 350 mg-400 mg- 1,000 unit Cap B COMPLEX Yes Take by Unive rs W-C 5-18 mouth. ity of NO.20/FOLIC 10:45: [place] ACID (B 10 Medical COMPLEX & C Branch NO.20-FOLIC ACID ORAL) BACILLUS Yes Take by Univer s COAGULANS -18 mouth. ity of (PROBIOTIC, 10:45: [place] B. 10 Medical COAGULANS, Branch ORAL) ASCORBIC Yes Take by Univer s ACID/VITAMI 5-18 mouth. ity of N E/BIOTIN 10:45: [place] (HAIR, 10 Medical SKIN, NAILS Branch WITH BIOTIN ORAL) omega-3s-dh Yes Take by Uni vers a-epa-fish -18 mouth. ity of oil-D3 10:45: [place] (VITAMIN-D 10 Medical + OMEGA-3) Branch 350 mg-400 mg- 1,000 unit Cap B COMPLEX Yes Take by Unive rs W-C 5-18 mouth. ity of NO.20/FOLIC 10:45: [place] ACID (B 10 Medical COMPLEX & C Branch NO.20-FOLIC ACID ORAL) BACILLUS 0 Yes Take by Univer s COAGULANS 5-18 mouth. ity of (PROBIOTIC, 10:45: [place] B. 10 Medical COAGULANS, Branch ORAL) ASCORBIC Yes Take by Univer s ACID/VITAMI 5-18 mouth. ity of N E/BIOTIN 10:45: [place] (HAIR, 10 Medical SKIN, NAILS Branch WITH BIOTIN ORAL) amLODIPine 0 Yes Univers 5 mg tablet 4-27 ity of 00:00: [place] [facility] amLODIPine 0 Yes Univers 5 mg tablet 4-27 ity of 00:00: [place] [facility] amLODIPine 0 Yes Univers 5 mg tablet 4-27 ity of 00:00: [place] [facility] amLODIPine 0 Yes Univers 5 mg tablet 4-27 ity of 00:00: [place] [facility] amLODIPine Yes Univers 5 mg tablet 4-27 ity of 00:00: [place] [facility] amLODIPine 0 Yes Univers 5 mg tablet 4-27 ity of 00:00: [place] [facility] amLODIPine 0 Yes Univers 5 mg tablet 4-27 ity of 00:00: [place] [facility] PAZEO 0.7 % 0 Yes Univer s Drop 4-21 ity of 00:00: [place] [facility] PAZEO 0.7 % 0 Yes Univer s Drop 4-21 ity of 00:00: [place] [facility] PAZEO 0.7 % [id number] Yes Univer s Drop 4-21 ity of 00:00: [place] [facility] PAZEO 0.7 % 0 Yes Univer s Drop 4-21 ity of 00:00: [place] [facility] PAZEO 0.7 % [id number] Yes Univer s Drop 4-21 ity of 00:00: [place] [facility] PAZEO 0.7 % 0 Yes Univer s Drop 4-21 ity of 00:00: [place] [facility] PAZEO 0.7 % [address] Yes Univer s Drop 4-21 ity of 00:00: [place] 00 Medical Branch Vital Signs Vital Name Observation Time Observation Value Comments Source Systolic blood 2020-11-22 21:00:00 122 mm[Hg] Univer sity of pressure [facility] Diastolic blood 2020-11-22 21:00:00 61 mm[Hg] Unive rsity of pressure [facility] Heart rate 2020-11-22 21:00:00 65 /min Universi ty of [place] [facility] Body temperature 2020-11-22 21:00:00 36.5 Flor [facility] Respiratory rate 2020-11-22 21:00:00 13 /min [facility] Oxygen saturation in 2020-11-22 21:00:00 94 /min [facility] Arterial blood by [facility] Pulse oximetry [place] Body height 2020-11-22 17:51:00 157.5 cm [facility] Body weight 2020-11-22 17:51:00 67.132 kg [facility] BMI 2020-11-22 17:51:00 27.07 kg/m2 [facility] Procedures Procedure Date / Time Performed Performing Clinician Nathaly e CT ABDOMEN PELVIS W 2022-10-30 19:39:39 Requisition, Paper [facility] ASSIGNMENT OF BENEFITS 2022-10-30 19:09:10 Doctor Unassigned, No [facility] CONSENT/REFUSAL FOR 2022-10-30 19:08:51 Doctor Unassigned, No [facility] Medical Branch TREATMENT ASSIGNMENT OF BENEFITS 2022-10-26 17:27:01 Doctor Unassigned, No [facility] BILATERAL VENOUS 2020-11-22 22:05:10 Singer [facility] DUPLEX LOWER EXTREMITY Medical [place] BY VASCULAR LAB XR CHEST 1 VW 2020-11-22 20:25:40 Singer [facility] TROPONIN I 2020-11-22 20:02:00 [place] [facility] COMP. METABOLIC PANEL 2020-11-22 20:02:00 Elzbieta Alegria [facility] ([id number]) [facility] CBC WITH DIFF 2020-11-22 20:02:00 Alegria, [facility] URINALYSIS 2020-11-22 20:02:00 Alegria, [facility] N-TERMINAL PRO-BNP 2020-11-22 20:02:00 Elzbieta Alegria [facility] NOTICE OF PRIVACY 2020-11-22 17:28:26 Doctor Unassigned, No Univ [facility] Medical [place] CONSENT/REFUSAL FOR 2020-11-22 17:28:03 [facility] Medical Branch TREATMENT ASSIGNMENT OF BENEFITS 2020-08-04 16:40:57 Doctor Unassigned, No [facility] Encounters Start End Encounter Admission Attending Care Care Encounter Source Date/Time Date/Time Type Type Clinicians Facility Department ID 2022-10-30 2022-10-30 Outpatient R RADIOLOGY [facility] [id number] Univers 13:10:01 23:59:00 ity of [place] [facility] 2022-10-30 2022-10-30 Hospital Radiology [facility] [id number] Univers 13:10:01 23:59:00 Encounter CINTHYA 350.1.13.10 ity of [place] [id number] [facility] 801 Branch 2022-10-26 2022-10-26 Hand Cooper Helper Akshat, Adc Lab Main [facility] 1.2.8 40.114 [id number] Univers 11:15:00 11:30:00 Visit Nini Duff 350.1.13.10 ity [facility] 4[place]2.7.2.686 [place] PROF[place] [id number] Ne dical NAL 353 Branch BUILDING 2022-10-26 2022-10-26 Outpatient R OMEGA [facility] [id number] Univers 11:15:00 11:15:00 NINI martino of [facility] 2022-10-26 2022-10-26 Orders Doctor COLLIER 1.2.840.114 [id number] Univers 00:00:00 00:00:00 Only Unassigned, MISTY 350.1.13.10 ity of [place] [facility] 4.2.7.2.686 Rj as [id number] [facility] 009 Branch 2020-11-22 2020-11-22 Emergency [facility] [id number] [id number] Univers 11:53:00 16:42:00 Elzbieta Bhatia 350.1.13.10 i ty of [place]2.[place] [id number] [facility] 084 Branch 2020-11-22 2020-11-22 Emergency X SINGER [facility] ERT [id number] Univers 11:53:00 16:42:00 ELZBIETA gunner [facility] 2020-11-22 2020-11-22 Orders Doctor AMIRA 1.2.840.114 [id number] Univers 00:00:00 00:00:00 Only Unassigned, MIST[place] 350.1.13.10 ity of [place] [facility] 4.2.7.2.686 Rj as [id number] [address] 2020-08-04 2020-08-04 Hand Cooper Helper Akshat, [facility] 1.2.840.114 [id number] 11:49:09 12:04:09 Visit Lab Main [place] 350.1.13.10 [place] 4.2.7.2.686 Professio [id number] [address] 2020-08-04 2020-08-04 Hand Cooper Helper Akshat, [facility] Lab Main [facility] 1.2.8 40.114 [id number] Univers 11:49:09 12:04:09 Visit Say Morales 350.1.13.1 0 ity of [place]2.[place] Profess[place] [id number] Ne dical [address] 2020-08-04 2020-08-04 Outpatient R CARMEN [facility] [id number] Univers 12:00:00 12:00:00 SAY martino [facility] 2020-08-04 2020-08-04 Orders Doctor AMIRA 1.2.840.114 [id number] 00:00:00 00:00:00 Only Unassigned, MIST[place] 350.1.13.10 [place] [facility] 4.2.7.2.686 [id number] 2020-08-04 2020-08-04 Orders Doctor AMIRA 1.2.840.114 [id number] Univers 00:00:00 00:00:00 Only Unassigned, MISTY 350.1.13.10 ity of [place] [facility] 4.2.7.2.686 Rj as [id number] [address] Results Test Description Test Time Test Comments Results Result Comments Source URINALYSIS 2020-11-22 20:52:00 Test Item Value Reference Range Interpretation Comme nts APPEARANCE (test code = Hazy Clear A 0317096601) COLOR (test code = 4595360816) Yellow Yellow PH (test code = 8047110220) 4.8-8.0 SP GRAVITY (test code = 1.003-1.030 3345090547) GLU U QUAL (test code = Normal Normal 4420696332) BLOOD (test code = 5044366480) Negative Negative KETONES (test code = 3245288380) Negative Negative PROTEIN (test code = 2887-8) Negative Negative UROBILIN (test code = Normal Normal 2562765395) BILIRUBIN (test code = Negative Negative 4986378721) NITRITE (test code = 3846110587) Negative Negative LEUK DANTE (test code = Negative Negative 4017109762) RBC/HPF (test code = 3026072561) See_Comment [Automated message] The system which ge nerated this result transmit cailin reference range: 0 - 3 HP F. The reference range was not used to interpret th is result as normal/abnormal . WBC/HPF (test code = 5860040160) See_Comment [Automated message] The system which ge nerated this result transmit cailin reference range: 0 - 5 HP F. The reference range was not used to interpret th is result as normal/abnormal . BACTERIA (test code = Few Negative A 8485979056) MUCOUS (test code = 8637802478) Moderate Negative LPF A SQ EPITH (test code = HPF 7508124206) HYAL CAST (test code = See_Comment [Aut omated message] The 1118571492) system which Flo[employer] nerated this result transmit cailin reference range: <=2 LPF. The reference range was not u sed to interpret this result as normal/abnormal . Lab Interpretation (test code = Abnormal 66099-5) [facility] [id number] 20:51:22Findings and Impression: ?Clear lungs. No pleural effusion or pneumothorax.Heart size is normal to mildly enlarged. Aortic arch calcifications. Noacute osseous abnormality. PORTABLE CHEST RADIOGRAPH History: shortness of breath Comparison: Not available TECHNIQUE: AP view of the chest. [facility], Radiant Results Inft User - 11/22/2020 2:52 PM CSTPORTABLE CHEST RADIOGRAPHHistory: shortness of breath Comparison: Not availableTECHNIQUE: AP view of the chest.IMPRESSIONFindings and Impression: Clear lungs. Nopleural effusion or pneumothorax.Heart size is normal to mildly enlarged. Aortic arch calcifications. Noacute osseous abnormality. [facility] [id number] 20:41:00 Test Item Value Reference Range Interpretation Comments TROPONIN I (test <0.012 See_Comment [Automated code = 1290670126) message] The system which generated this result transmitted reference range : <=0.034 ng/mL. The reference range was not used to interpr et this result as normal/abnormal . SUSHIL (test code = Equal or Less than SUSHIL) 0.034 ng/ml---Normal ?Note: Cardiac troponin begins to rise 3-4 hours after the onset of ischemia. Repeat in 4-6 hours if the sample was drawn within 3-4 hours of the onset of the symptom and found normal. Between 0.035 and 0.120 ng/mL--- Borderline. Questionable myocardial injury or necrosis ? ?Note: Serial measurement may be necessary to confirm or exclude the diagnosis of myocardial injury or necrosis; Clinical correlation (symptoms, EKGs, imaging studies, and others) required; Repeat in 4-6 hours if clinically indicated. ? Equal or Higher than 0.121 ng/mL---Abnormal. Myocardial Injury or Necrosis Likely ? Biotin has been reported to cause a negative bias, interpret results relative to patient's use of biotin. ? Lab Interpretation Normal (test code = 17259-2) [facility] [id number] 20:38:00 Test Item Value Reference Range Interpretation Comments NT-proBNP (test code 48 pg/mL See_Comment [Autom ated = 0857541760) message] The system which generated this result transmitted reference range : <=125. The reference range was not used to interpret this result as normal/abnormal . SUSHIL (test code = SUSHIL) Biotin has been reported to cause a negative bias, interpret results relative to patient's use of biotin. Lab Interpretation Normal (test code = 34879-2) [facility] MET[facility]OLIC PANEL ([id number])2020-11-22 20:27:00 Test Item Value Reference Range Interpretation Comments NA (test code = 137 mmol/L 135-145 5758410690) K (test code = 3.9 mmol/L 3.5-5 2699002515) CL (test code = 102 mmol/L 98-108 2787065941) CO2 TOTAL (test code = 27 mmol/L 23-31 0507032019) AGAP (test code = 2-16 9013408914) BUN (test code = 19 mg/dL 7-23 5351572464) GLUCOSE (test code = 105 mg/dL 70-110 5664787401) CREATININE (test code 0.67 mg/dL 0.5-1.04 = 5324644393) TOTAL BILI (test code 0.7 mg/dL 0.1-1.1 = 4520954427) CALCIUM (test code = 9.2 mg/dL 8.6-10.6 6983867730) T PROTEIN (test code = 7.4 g/dL 6.3-8.2 1771563478) ALBUMIN (test code = 4.5 g/dL 3.5-5 9917029975) ALK PHOS (test code = 66 U/L 34-122 8551542989) ALTv (test code = 20 U/L 5-35 1742-6) AST(SGOT) (test code = 28 U/L 13-40 3499933478) eGFR Calculation mL/min/1.73m2 (Non-) (test code = 9098439675) eGFR Calculation mL/min/1.73m2 () (test code = 9358724405) SUSHIL (test code = SUSHIL) Association of Glomerular Filtration Rate (GFR) and Staging of Kidney Disease* + -+ + ---+| GFR (mL/min/1.73 m2) ?| With Kidney Damage ?| ?Without Kidney Damage+ -------+ ------+ ---------+| ?>90 ?| ?Stage one ?| ? Normal ?+ --+ -+ ----+| ?60-89 ?| ?Stage two ?| ? Decreased GFR ? + -+ + ---+| ?30-59 ?| ?Stage three ?| ? Stage three ? + -+ + ---+| ?15-29 ?| ?Stage four ? | ? Stage four ?+ --+ -+ ----+| ?<15 (or dialysis) ? ?| ?Stage five ? | ? Stage five ?+ --+ -+ ----+ *Each stage assumes the associated GFR level has been in effect for at least three months. ?Stages 1 to 5, with or without kidney disease, indicate chronic kidney disease. Notes: Determination of stages one and two (with eGFR >59mL/min/1.73 m2) requires estimation of kidney damage for at least three months as defined by structural or functional abnormalities of the kidney, manifested by either:Pathological abnormalities or Markers of kidney damage (including abnormalities in the composition of the blood or urine or abnormalities in imaging tests). [facility] WITH [id number] 20:19:00 Test Item Value Reference Range Interpretation Comments WBC (test code = See_Comment [Automated message] 5790-2) The system [employer] generated this result transmitted ref erence range: 4.30 - 1 1.10 10*3/?L. The re ference range was not u sed to interpret this result as normal/abnor mal. RBC (test code = See_Comment [Automated message] 199-8) The system [employer] generated this result transmitted ref erence range: 3.93 - 5 .25 10*6/?L. The re ference range was not u sed to interpret this result as normal/abnor mal. HGB (test code = 13.7 g/dL 11.6-15 718-7) HCT (test code = 40.1 % 35.7-45.2 4544-3) MCV (test code = 93.3 fL 80.6-95.5 787-2) MCH (test code = 31.9 pg 25.9-32.8 785-6) MCHC (test code = 34.2 g/dL 31.6-35.1 786-4) RDW-SD (test code 41.3 fL 39-49.9 = 09488-4) RDW-CV (test code 12.0 % 12-15.5 = 788-0) PLT (test code = See_Comment [Automated message] 537-3) The system [employer] generated this result transmitted ref erence range: 166 - 35 8 10*3/?L. The re ference range was not u sed to interpret this result as normal/abnor mal. MPV (test code = 11.2 fL 9.5-12.9 07969-9) NRBC/100 WBC (test See_Comment [Automat ed message] code = 3529839686) The syste m which generated this result transmitted ref erence range: 0.0 - 10 .0 /100 WBCs. The refer ence range was not u sed to interpret this result as normal/abnor mal. NRBC x10^3 (test <0.01 See_Comment [Automated message] code = 6017217863) The syste m which generated this result transmitted ref erence range: 10*3/?L. The reference range was not used to interpr et this result as normal/abnormal . GRAN MAT (NEUT) % 50.9 % (test code = 770-8) IMM GRAN % (test 0.20 % code = 0614516121) LYMPH % (test code 36.9 % = 736-9) MONO % (test code 9.3 % = 5905-5) EOS % (test code = 2.0 % 713-8) BASO % (test code 0.7 % = 706-2) GRAN MAT 3.08 10*3/uL 1.88-7.09 x10^3(ANC) (test code = 6971192464) IMM GRAN x10^3 <0.03 0-0.06 (test code = 6933094063) LYMPH x10^3 (test 2.23 10*3/uL 1.32-3.29 code = 731-0) MONO x10^3 (test 0.56 10*3/uL 0.33-0.92 code = 742-7) EOS x10^3 (test 0.12 10*3/uL 0.03-0.39 code = 711-2) BASO x10^3 (test 0.04 10*3/uL 0.01-0.07 code = 704-7) [facility]"
[2023-08-10 18:58] LABS: Absolute Lymphocytes (CBC) 3.2 K/uL (0.7-4.9); Hematocrit 38.6 % (36.0-45.0); Lymphocytes % 41.8 % (15.3-44.8); MCV 93.4 fL (80-100); MPV 9.2 fL (7.6-11.3); Platelets 172 thou/uL (152-406); RBC Red Blood Cell Count 4.14 M/uL (3.86-4.86)
[2023-08-10] MEDS ORDERED: NA CHLORIDE 0.9% 2,000 ML ONE (18:59)
[2023-08-10] MEDS ORDERED: ASPIRIN 81 MG CHEWABLE TABLET ONE (18:59)
[2023-08-10 19:21] LABS: ALT/SGPT 22 U/L (13-56); Alkaline Phosphatase 62 U/L (45-117); BUN Blood Urea Nitrogen 17 mg/dL (7-18); Bicarbonate 24 mEq/L (21-32); Bilirubin Total 0.2 mg/dL (0.2-1.0); Glomerular Filtration Rate 64 ml/min (=/>90); Glucose Level 127 mg/dL (74-106); Lipase 81 U/L (13-75); NT PRO-BNP 89 pg/mL (<450); Protein, Total 7.5 g/dL (6.4-8.2); Sodium Level 139 mEq/L (136-145); Troponin High Sensitivity 3.3 pg/mL (<58.9)
[2023-08-10 19:23] LABS: AST/SGOT 17 U/L (15-37); Bilirubin Direct < 0.1 mg/dL (0-0.2); Bilirubin Indirect, Calculated ND mg/dL (0.2-0.8); Magnesium 2.3 mg/dL (1.6-2.4); Potassium 3.6 mEq/L (3.5-5.1)
[2023-08-10] MEDS ORDERED: ONDANSETRON 4 MG/2 ML VIAL ONE (19:25)
[2023-08-10] MEDS ORDERED: MORPHINE 4 MG/ML SYR ONE (19:25)
[2023-08-10] MEDS ORDERED: FAMOTIDINE 20 MG/2 ML VIAL IV ONE (19:25)
[2023-08-10 19:49] LABS: Protime INR 0.96
[2023-08-10] MEDS ORDERED: AMLODIPINE 5 MG TAB ONE (19:52)
--- NOTE | 2023-08-10 20:03 | EDPHYS ---
Physician Documentation [facility] Name: Lyudmila Carranza Age: 77 yrs Sex: Female : 1945 Arrival Date: 08/10/2023 Time: 18:41 Bed 2 Private MD: ED Physician Chandra Hoskins HPI: 08/10 18:58 This 77 yrs old Female presents to ER via Ambulatory with complaints of Chest nano Pain. 18:58 The patient or guardian reports chest pain that is located primarily in the substernal nano area, anterior chest wall, left. Onset: at 15:30. The pain radiates to left scapular area and left subscapular area and left arm. Associated signs and symptoms: Pertinent positives: lightheadedness, nausea, shortness of breath. The chest pain is described as a pressure, sharp. Duration: The patient or guardian reports multiple episodes, that wax and wane. Modifying factors: The symptoms are alleviated by remaining still, the symptoms are aggravated by deep breath, movement. Severity of pain: At its worst the pain was moderate in the emergency department the pain is unchanged. The patient has not experienced similar symptoms in the past. Historical: - Allergies: 18:53 Demerol; hb - Home Meds: 18:53 amlodipine 5 mg tab 1 tab once daily [Active]; pravastatin 80 mg Oral tab 1 tab once hb daily [Active]; - PMHx: 18:53 High Cholesterol; Hypertension; hb - Immunization history:: Adult Immunizations up to date. - Family history:: not pertinent. - Social history:: Smoking status: unknown. ROS: 18:58 Constitutional: Negative for fever, chills, and weight loss, Eyes: Negative for injury, nano pain, redness, and discharge, ENT: Negative for injury, pain, and discharge, Neck: Negative for injury, pain, and swelling, Respiratory: Negative for shortness of breath, cough, wheezing, and pleuritic chest pain, Abdomen/GI: Negative for abdominal pain, nausea, vomiting, diarrhea, and constipation, Back: Negative for injury and pain, : Negative for injury, bleeding, discharge, and swelling, MS/Extremity: Negative for injury and deformity, Skin: Negative for injury, rash, and discoloration, Neuro: Negative for headache, weakness, numbness, tingling, and seizure, Psych: Negative for depression, anxiety, suicide ideation, homicidal ideation, and hallucinations, Allergy/Immunology: Negative for hives, rash, and allergies, Endocrine: Negative for neck swelling, polydipsia, polyuria, polyphagia, and marked weight changes, Hematologic/Lymphatic: Negative for swollen nodes, abnormal bleeding, and unusual bruising, 18:58 Cardiovascular: Positive for chest pain, of the left subscapular area and left scapular area and left arm and chest, Exam: 18:58 Constitutional: This is a well developed, well nourished patient who is awake, alert, nano and in no acute distress. Head/Face: Normocephalic, atraumatic. Eyes: Pupils equal round and reactive to light, extra-ocular motions intact. Lids and lashes normal. Conjunctiva and sclera are non-icteric and not injected. Cornea within normal limits. Periorbital areas with no swelling, redness, or edema. ENT: Nares patent. No nasal discharge, no septal abnormalities noted. Tympanic membranes are normal and external auditory canals are clear. Oropharynx with no redness, swelling, or masses, exudates, or evidence of obstruction, uvula midline. Mucous membranes moist. Neck: Trachea midline, no thyromegaly or masses palpated, and no cervical lymphadenopathy. Supple, full range of motion without nuchal rigidity, or vertebral point tenderness. No Meningismus. Chest/axilla: Normal chest wall appearance and motion. Nontender with no deformity. No lesions are appreciated. Cardiovascular: Regular rate and rhythm with a normal S1 and S2. No gallops, murmurs, or rubs. Normal PMI, no JVD. No pulse deficits. Respiratory: Lungs have equal breath sounds bilaterally, clear to auscultation and percussion. No rales, rhonchi or wheezes noted. No increased work of breathing, no retractions or nasal flaring. Abdomen/GI: Soft, non-tender, with normal bowel sounds. No distension or tympany. No guarding or rebound. No evidence of tenderness throughout. Back: No spinal tenderness. No costovertebral tenderness. Full range of motion. Female : Normal external genitalia. Skin: Warm, dry with normal turgor. Normal color with no rashes, no lesions, and no evidence of cellulitis. MS/ Extremity: Pulses equal, no cyanosis. Neurovascular intact. Full, normal range of motion. Neuro: Awake and alert, GCS 15, oriented to person, place, time, and situation. Cranial nerves II-XII grossly intact. Motor strength 5/5 in all extremities. Sensory grossly intact. Cerebellar exam normal. Normal gait. Psych: Awake, alert, with orientation to person, place and time. Behavior, mood, and affect are within normal limits. 18:58 ECG was reviewed by the Attending Physician. 20:27 Musculoskeletal/extremity: DVT Exam: No signs of deep vein thrombosis. no pain, no nano swelling, no tenderness, negative Homans' sign noted on exam, no appreciated bluish discoloration, no erythema, no increased warmth, Vital Signs: 18:52 BP 210 / 78; Pulse 81; Resp 16; Temp 98(O); Pulse Ox 99% on R/A; Weight 66.68 kg; hb Height 5 ft. 2 in. ; Pain 10/10; 19:33 BP 178 / 71; Pulse 57; Resp 16; Pulse Ox 100% on R/A; jb4 20:42 BP 152 / 67; Pulse 67; Resp 16; Pulse Ox 100% on R/A; kd3 21:30 BP 141 / 69; Pulse 58; Resp 18; Pulse Ox 99% on R/A; jb4 18:52 Body Mass Index 26.89 (66.68 kg, 157.48 cm) hb 18:52 Pain Scale: Adult hb MDM: 18:43 Patient medically screened. nano 19:02 Differential diagnosis: abnormal EKG, acute myocardial infarction, coronary artery nano disease chest wall pain, congestive heart failure costochondritis, hiatal hernia, pancreatitis, pleurisy, pneumonia, pulmonary embolus, stable angina, thoracic aortic disection, unstable angina. HEART Score: History: Slightly Suspicious (0), ECG: Normal (0), Age: > or = 65 years (2), Risk Factors: > or = 3 Risk factors for atherosclerotic disease (2), [Hypercholesterolemia] [Hypertension] [+ Family HX] [Obesity]. The patient was given aspirin in the Emergency Department. Data reviewed: vital signs, nurses notes, lab test result(s), EKG, radiologic studies, plain films. Consideration of Admission/Observation Patient was admitted/placed on observation. Escalation of care including admission/observation considered. I considered the following discharge prescriptions or medication management in the emergency department Medications were administered in the Emergency Department. See MAR. Independent interpretation of the following test(s) in the Emergency Department EKG: See my EKG interpretation above. Test considered but Not performed: Ultrasound no 2d echo. Historians other than the Patient: Spouse/Significant Other: well informed. Care significantly affected by the following chronic conditions: Hypertension, Obesity. 08/10 18:44 Order name: Basic Metabolic Panel; Complete Time: 19:[address] [facility] 08/10 18:44 Order name: CBC with Diff; Complete Time: 19:39 nano 08/10 18:44 Order name: LFT's; Complete Time: 19:39 nano 08/10 18:44 Order name: Magnesium; Complete Time: 19:39 08/10 18:44 Order name: NT PRO-BNP; Complete Time: 19:39 08/10 18:44 Order name: PT-INR; Complete Time: 19:53 08/10 18:44 Order name: Troponin HS; Complete Time: 19:39 08/10 18:44 Order name: Lipase; Complete Time: 19:[address] [facility] 08/10 18:44 Order name: XRAY Chest (1 view) [facility] 08/10 18:58 Order name: CT Aorta for Dissection 08/10 18:44 Order name: EKG; Complete Time: 18:45 08/10 18:44 Order name: Cardiac monitoring; Complete Time: 18:46 08/10 18:44 Order name: EKG - Nurse/Tech; Complete Time: 18:46 08/10 18:44 Order name: IV Saline Lock; Complete Time: 18:54 08/10 18:44 Order name: Labs collected and sent; Complete Time: 18:54 08/10 18:44 Order name: O2 Per Protocol; Complete Time: 18:46 08/10 18:44 Order name: O2 Sat Monitoring; Complete Time: 18:46 08/10 19:03 Order name: Misc. Order: RECOLLECT LIGHT BLUE; Complete Time: 19:42 rv1 EC:58 Rate is 74 beats/min. Rhythm is regular. QRS [place] is Normal. [place] interval is normal. QRS nano interval is normal. QT interval is normal. No Q waves. T waves are Normal. No ST changes noted. Clinical impression: NSR w/ Non-specific ST/T Changes and No evidence of ischemia. Interpreted by me. Reviewed by me. Administered Medications: 18:54 Drug: NS 0.9% IV 500 ml IV at bolus once Route: IV; Rate: bolus; Site: right ld1 antecubital; 18:54 Drug: NS 0.9% IV 1000 ml IV at 125 ml/hr continuous Route: IV; Rate: 125 ml/hr; Site: ld1 right antecubital; 18:54 Drug: Aspirin PO Chewable Tablet 324 mg PO once; 81 mg tablets x 4 Route: PO; ld1 19:23 Drug: morphine IVP or IV 4 mg IVP once over 4 mins Route: IVP; Infused Over: 4 mins; jb4 Site: right antecubital; 19:23 Drug: Ondansetron IVP 4 mg IVP once; over 2 minutes Route: IVP; Site: right antecubital;jb4 19:23 Drug: Famotidine IVP 20 mg IVP once; dilute with 10 mL 0.9% NaCl; give over 2 minutes jb4 Route: IVP; Site: right antecubital; 19:34 Not Given (Hemodynamic Parameters): metoprolol2.5 mg IVP once; Hold for SBP <100 or HR jb4 <60. 19:34 Not Given (Hemodynamic Parameters): metoprolol2.5 mg IVP once; Hold for SBP <100 or HR jb4 <60. 19:38 Not Given (Hemodynamic Parameters): [id number] mg PO once jb4 19:41 Drug: Norvasc PO 5 mg PO once Route: PO; jb4 20:56 Drug: Enoxaparin Sub-Q 1 mg/kg Sub-Q once Route: Sub-Q; Site: left upper abdomen; jb4 Disposition Summary: 08/10/23 20:02 Hospitalization Ordered Notes: Hospitalization Status: Observation nano Provider: Lyn Mc cha Location: Telemetry/MedSurg (observation) nano Condition: Fair nano Problem: new nano Symptoms: have improved nano Bed/Room Type: Standard nano Room Assignment: 225(08/10/23 21:26) mw Diagnosis - Essential (primary) hypertension nano - Chest pain on breathing nano - Chest pain, unspecified nano Forms: - Medication Reconciliation Form nano - SBAR form nano - Leadership Thank You Letter nano Signatures: Dispatcher [employer] Shun Pedersonha, RN Chandra Booker MD MD cha Baxter, Heather, RN RN Eliseo Acosta, RN RN jb4 Atiya Raymond RN RN ld1 Diane Garcia RN RN kd3 Aicha Post1 Corrections: (The following items were deleted from the chart) 21:26 20:02 nano phillip
--- NOTE | 2023-08-10 20:03 | ER ---
Nurse's Notes [facility] Name: Lyudmila Carranza Age: 77 yrs Sex: Female : 1945 Arrival Date: 08/10/2023 Time: 18:41 Bed 2 Private MD: Diagnosis: Essential (primary) hypertension;Chest pain on breathing;Chest pain, unspecified Presentation: 08/10 18:52 Chief complaint: Left sided chest pain that radiates to back and left arm x 4 hours. hb Pain is worse with deep breathing. Coronavirus screen: At this time, the client does not indicate any symptoms associated with coronavirus-19. Ebola Screen: No symptoms or risks identified at this time. Initial Sepsis Screen: Does the patient meet any 2 criteria? No. Patient's initial sepsis screen is negative. Does the patient have a suspected source of infection? No. Patient's initial sepsis screen is negative. Risk Assessment: Do you want to hurt yourself or someone else? Patient reports no desire to harm self or others. Onset of symptoms was August 10, 2023 at 15:00. 18:52 Method Of Arrival: Ambulatory hb 18:52 Acuity: HI 2 hb Triage Assessment: 18:54 General: Appears uncomfortable, Behavior is anxious. Pain: Complains of pain in chest mb9 Pain radiates to left arm Pain currently is 10 out of 10 on a pain scale. Quality of pain is described as sharp, shooting, stabbing, Pain began suddenly, Is continuous. EENT: No signs and/or symptoms were reported regarding the EENT system. Neuro: Level of Consciousness is awake, alert, obeys commands, Oriented to person, place, time, situation, Appropriate for age. Cardiovascular: Reports chest pain, shortness of breath, Heart tones S1 S2 present Patient's skin is warm and dry. Rhythm is regular. Respiratory: Airway is patent Respiratory effort is even, unlabored, Respiratory pattern is regular, symmetrical. GI: Abdomen is round non-distended, Bowel sounds present X 4 quads. : No signs and/or symptoms were reported regarding the genitourinary system. Derm: Skin is pink, warm \T\ dry. Musculoskeletal: Range of motion: intact in all extremities. Historical: - Allergies: 18:53 Demerol; hb - Home Meds: 18:53 amlodipine 5 mg tab 1 tab once daily [Active]; pravastatin 80 mg Oral tab 1 tab once hb daily [Active]; - PMHx: 18:53 High Cholesterol; Hypertension; hb - Immunization history:: Adult Immunizations up to date. - Family history:: not pertinent. - Social history:: Smoking status: unknown. Screenin:53 [facility] ED Fall Risk Assessment (Adult) History of falling in the last 3 months, mb9 including since admission No falls in past 3 months (0 pts) Confusion or Disorientation No (0 pts) Intoxicated or Sedated No (0 pts) Impaired Gait No (0 pts) Mobility Assist Device Used No (0 pt) Altered Elimination No (0 pt) Score/Fall Risk Level 0 - 2 = Low Risk Oriented to surroundings, Maintained a safe environment, Educated pt \T\ family on fall prevention, incl call for assistance when getting out of bed. Abuse screen: Denies threats or abuse. Nutritional screening: No deficits noted. Tuberculosis screening: No symptoms or risk factors identified. Assessment: 19:15 Reassessment: Patient appears in no apparent distress at this time. Patient and/or jb4 family updated on plan of care and expected duration. Pain level reassessed. Patient is alert, oriented x 3, equal unlabored respirations, skin warm/dry/pink. 20:07 Reassessment: Patient appears in no apparent distress at this time. Patient and/or jb4 family updated on plan of care and expected duration. Pain level reassessed. Patient is alert, oriented x 3, equal unlabored respirations, skin warm/dry/pink. Patient denies pain at this time. 21:30 Reassessment: Patient appears in no apparent distress at this time. Patient and/or jb4 family updated on plan of care and expected duration. Pain level reassessed. Patient is alert, oriented x 3, equal unlabored respirations, skin warm/dry/pink. Vital Signs: 18:52 BP 210 / 78; Pulse 81; Resp 16; Temp 98(O); Pulse Ox 99% on R/A; Weight 66.68 kg; hb Height 5 ft. 2 in. ; Pain 10/10; 19:33 BP 178 / 71; Pulse 57; Resp 16; Pulse Ox 100% on R/A; jb4 20:42 BP 152 / 67; Pulse 67; Resp 16; Pulse Ox 100% on R/A; kd3 21:30 BP 141 / 69; Pulse 58; Resp 18; Pulse Ox 99% on R/A; jb4 18:52 Body Mass Index 26.89 (66.68 kg, 157.48 cm) hb 18:52 Pain Scale: Adult hb ED Course: 18:42 Patient arrived in ED. rg4 18:43 Chandra Hoskins MD is Attending Physician. nano 18:53 Triage completed. hb 18:53 Patient has correct armband on for positive identification. Placed in gown. Bed in low mb9 position. Call light in reach. Side rails up X 1. Client placed on continuous cardiac and pulse oximetry monitoring. NIBP monitoring applied. monitoring manager on. 18:53 EKG done, by ED staff, reviewed by Chandra Hoskins MD. Inserted saline lock: 20 gauge in mb9 right antecubital area, using aseptic technique. Blood collected. 18:54 No provider procedures requiring assistance completed. mb9 18:55 Arm band placed on. mb9 18:55 Patient maintains SpO2 saturation greater than 95% on room air. mb9 19:09 Diane Garcia, RN is Primary Nurse. kd3 19:17 XRAY Chest (1 view) In Process Unspecified. EDMS 19:57 Lyn Mc MD is Hospitalizing Provider. nano 20:09 CT Aorta for Dissection In Process Unspecified. EDMS 20:42 Assisted to bathroom. kd3 22:21 Provided Education on: . kd3 22:21 Patient admitted, IV remains in place. kd3 Administered Medications: 18:54 Drug: NS 0.9% IV 500 ml IV at bolus once Route: IV; Rate: bolus; Site: right ld1 antecubital; 18:54 Drug: NS 0.9% IV 1000 ml IV at 125 ml/hr continuous Route: IV; Rate: 125 ml/hr; Site: ld1 right antecubital; 18:54 Drug: Aspirin PO Chewable Tablet 324 mg PO once; 81 mg tablets x 4 Route: PO; ld1 19:23 Drug: morphine IVP or IV 4 mg IVP once over 4 mins Route: IVP; Infused Over: 4 mins; jb4 Site: right antecubital; 19:23 Drug: Ondansetron IVP 4 mg IVP once; over 2 minutes Route: IVP; Site: right antecubital;jb4 19:23 Drug: Famotidine IVP 20 mg IVP once; dilute with 10 mL 0.9% NaCl; give over 2 minutes jb4 Route: IVP; Site: right antecubital; 19:34 Not Given (Hemodynamic Parameters): metoprolol2.5 mg IVP once; Hold for SBP <100 or HR jb4 <60. 19:34 Not Given (Hemodynamic Parameters): metoprolol2.5 mg IVP once; Hold for SBP <100 or HR jb4 <60. 19:38 Not Given (Hemodynamic Parameters): [id number] mg PO once jb4 19:41 Drug: Norvasc PO 5 mg PO once Route: PO; jb4 20:56 Drug: Enoxaparin Sub-Q 1 mg/kg Sub-Q once Route: Sub-Q; Site: left upper abdomen; jb4 Medication: 18:53 VIS not applicable for this client. mb9 Outcome: 20:02 Decision to Hospitalize by Provider. nano 22:21 Admitted to Med/surg kd3 22:21 Condition: stable 22:21 Discharge instructions given to patient, Instructed on the need for admit, Demonstrated understanding of instructions, 22:22 Patient left the ED. kd3 Signatures: Dispatcher [employer] EDMS Chandra Hoskins MD MD cha Baxter, Heather, RN Quin Teran4 Eliseo Gaston RN RN jb4 Atiya Raymond RN RN ld1 Diane Garcia RN RN kd3 Nguyen Abdi RN RN mb9
--- NOTE | 2023-08-10 20:20 | RAD REPORT ---
EXAM DESCRIPTION: CT - Angio Aorta For Dissection - 08/10/2023 8:07 pm CLINICAL HISTORY: . Chest and abd pain COMPARISON: 2019 TECHNIQUE: Computed tomography angiography of the chest, abdomen pelvis were obtained. 100 cc Isovue 370 was administered intravenously. Coronal and sagittal reconstruction were performed. MIP 3D reconstruction was performed All CT scans are performed using dose optimization technique as appropriate and may include automated exposure control or mA/KV adjustment according to patient size. FINDINGS: An aortic dissection is not seen. An aortic aneurysm is not displayed. The celiac, SMA and DWIGHT are patent . Mild atherosclerosis A lung consolidation is not present. A pericardial effusion is not seen. A pleural effusion is not no cailin. The liver,spleen, pancreas,adrenals and kidneys demonstrate no significant abnormality. There no evidence diverticulitis. IMPRESSION: Negative for an aortic dissection.
--- NOTE | 2023-08-10 20:21 | RAD REPORT ---
EXAM DESCRIPTION: Ben Single View08/10/2023 7:15 pm CLINICAL HISTORY: Chest pain COMPARISON: 2018 FINDINGS: The lungs appear clear of acute infiltrate. The heart is normal size IMPRESSION: No acute abnormalities displayed
[2023-08-10] MEDS ORDERED: ENOXAPARIN 60 MG/0.6 ML SQ ONE (21:01)
--- NOTE | 2023-08-10 21:13 | P.HP ---
Certification for Inpatient Patient admitted to: Observation With expected LOS: <2 Midnights Patient will require the following post-hospital care: None Practitioner: I am a practitioner with admitting privileges, knowledge of patient current condition, hospital course, and medical plan of care. Services: Services provided to patient in accordance with Admission requirements found in Title 42 Section 412.3 of the Code of Federal Regulations Patient History Date of Service: 08/11/23 Reason for admission: Chest pain History of Present Illness: 77-year-old female with a past medical history of hypertension hyperlipidemia, presents to the emergency room with chest pain. She reports chest pain is substernal, anterior radiates to the left shoulder, left arm, she reports associated nausea, lightheadedness, shortness of breath. She reports pleuritic chest pain. Vital signs on evaluation to the emergency room hypertensive emergency Signs: BP 210 / 78; Pulse 81; Resp 16; Temp 98(O); Pulse Ox 99% on R/A; EKG Rate is 74 beats/min. Rhythm is regular. QRS [place] is Normal. [place] interval is normal. QRS interval is normal. QT interval is normal. No Q waves. T waves are Normal. No ST changes noted. Clinical impression: NSR w/ Non-specific ST/T Changes and No evidence of ischemia. Patient was treated with aspirin 324, 500 cc normal saline bolus, 4 mg of morphine, Zofran 4 mg x 1, Pepcid 20 mg. Metoprolol 25 mg p.o. x1, Norvasc 5 mg p.o. x1. Plan to admit for chest pain rule out CO, hypertensive emergency. Laboratory evaluation CBC unremarkable remarkable CT MP unremarkable troponin normal at 3.3, BNP 89, CT of the chest rule out dissection negative for aortic dissection, chest x-ray no acute abnormalities Allergies caffeine Allergy (Verified 09/15/20 11:27) fibrocystic disease meperidine [From Demerol] Allergy (Verified 09/15/20 11:27) Itching Penicillins Allergy (Verified 09/15/20 11:27) unknown Home Medications: Alendronate Sodium 70 mg PO SEECOM 09/15/20 Amlodipine [Norvasc] 5 mg PO DAILY 09/15/20 Aspirin [Hermila Chewable] 81 mg PO DAILY 09/15/20 Calcium Carbonate/Vitamin D3 [Calcium 600 mg-D3 10 Mcg Sfgl] 1 each PO DAILY 09/15/20 Cetirizine HCl [Allergy Relief] 10 mg PO DAILY 09/15/20 Cholecalciferol (Vitamin D3) [Vitamin D3] 1,000 unit PO DAILY 09/15/20 Cyanocobalamin (Vitamin B-12) [Vitamin B-12] 1,000 mcg PO DAILY 09/15/20 Estradiol [Estrace] 42.5 gm VG SEECOM 09/15/20 Fish Oil/Dha/Epa [Fish Oil 1,200 mg Fish Oil] 1 each PO DAILY 09/15/20 L.acidoph,Paracasei, B.lactis [Probiotic] 1 each PO DAILY 09/15/20 Melatonin 20 mg PO DAILY 09/15/20 Omeprazole [Prilosec] 80 mg PO DAILY 09/15/20 Pravastatin Sodium 80 mg PO DAILY 09/15/20 Turmeric Root Extract [Turmeric Curcumin] 500 mg PO DAILY 09/15/20 - Past Medical/Surgical History -: Seasonal allergies -: Hypothyroidism -: Hypertension -: Hyperlipidemia -: Vitamin D deficiency - Social History Smoking Status: Never smoker Smoking therapy provided: No Patient receptive to therapy: No Alcohol use: No CD- Drugs: No Caffeine use: No Place of Residence: Home Review of Systems 10-point ROS is otherwise unremarkable Physical Examination - Physical Exam General: Alert, In no apparent distress, Oriented x3 HEENT: Atraumatic, Normocephalic, PERRLA Neck: Supple, 2+ carotid pulse no bruit, JVD not distended Respiratory: Clear to auscultation bilaterally, Other (Pleuritic chest pain) Cardiovascular: No edema, Normal pulses, Regular rate/rhythm, Normal S1 S2, Other (Hypertensive urgency, pleuritic chest pain) Capillary refill: <2 Seconds Gastrointestinal: Normal bowel sounds, Soft and benign Musculoskeletal: No clubbing, No swelling Integumentary: No rashes, No breakdown Neurological: Normal speech, Normal strength at 5/5 x4 extr - Studies Laboratory Data (last 24 hrs) 08/10/23 08/10/23 08/10/23 19:34 18:51 18:51 WBC 7.60 Hgb 13.2 Hct 38.6 Plt Count 172 PT 10.6 INR 0.96 Sodium 139 Potassium 3.6 BUN 17 Creatinine 0.93 Glucose 127 H Magnesium 2.3 Total Bilirubin 0.2 AST 17 ALT 22 Alkaline Phosphatase 62 Lipase 81 H Assessment and Plan - Plan Assessment plan Pleuritic chest pain Hypertensive urgency Hyperlipidemia Vitamin D deficiency Assessment plan Pleuritic chest pain Hypertensive urgency Cardiology consult, telemetry, trend troponins, lipid panel in the a.m. Aspirin, start beta-moises, antilipid, as needed antihypertensives, troponin normal at 3.3, BNP 89, CT of the chest rule out dissection negative for aortic dissection, chest x-ray no acute abnormalities BP 210 / 78; Pulse 81; Resp 16; Temp 98(O); Pulse Ox 99% on R/A; EKG Rate is 74 beats/min. Rhythm is regular. QRS [place] is Normal. [place] interval is normal. QRS interval is normal. QT interval is normal. No Q waves. T waves are Normal. No ST changes noted. Clinical impression: NSR w/ Non-specific ST/T Changes and No evidence of ischemia. Patient was treated with aspirin 324, 500 cc normal saline bolus, 4 mg of morphine, Zofran 4 mg x 1, Pepcid 20 mg. Metoprolol 25 mg p.o. x1, Norvasc 5 mg p.o. x1. Hyperlipidemia Vitamin D deficiency Resume appropriate home meds Diet n.p.o. after midnight Full code DVT Lovenox Discharge Plan: Home Plan to discharge in: 24 Hours - Advance Directives Does patient have a Living Will: No Does patient have a Durable POA for Healthcare: No - Code Status/Comfort Care Code Status Assessed: Yes Code Status: Full Code Physician Review: Patient Assessed, Agree with Above Assessment and Plan Critical Care: No Time Spent Managing Pts Care (In Minutes): 50
[2023-08-10] MEDS ORDERED: NITROGLYCERIN 0.4 MG/TAB SL PRN (21:25)
[2023-08-10 22:31] VITALS: BMI 19.9
[2023-08-10] MEDS ORDERED: ONDANSETRON 4 MG/2 ML VIAL IV PRN (23:46)
[2023-08-10] MEDS ORDERED: MORPHINE 2 MG/ML SYR IV PRN (23:46)
[2023-08-11 04:02] LABS: Albumin 3.3 g/dL (3.4-5.0); Bilirubin Total 0.2 mg/dL (0.2-1.0); Magnesium 1.9 mg/dL (1.6-2.4); Potassium 3.5 mEq/L (3.5-5.1); Protein, Total 6.3 g/dL (6.4-8.2)
[2023-08-11] MEDS: METOPROLOL TAR 25 MG TAB PO SCH ×2 (06:02→18:00)
[2023-08-11] MEDS ORDERED: ASPIRIN 325 MG TAB PO SCH (09:00)
[2023-08-11] MEDS ORDERED: ENOXAPARIN 40 MG/0.4 ML SQ SCH (09:00)
[2023-08-11] MEDS ORDERED: INFLUENZA VACCINE (for 6+ mo) 0.5 ML DOSE IMVAC ONE (12:00)
[2023-08-11 14:51] VITALS: O2SAT 99
[2023-08-11 17:23] VITALS: BP 137/64; TEMP 97.7
[2023-08-11] MEDS ORDERED: ATORVASTATIN 40 MG TAB PO SCH (21:00)
--- NOTE | 2023-08-13 12:37 | EKG ---
Test Date: 2023-08-10 Test Time: 18:50:42 Bending Machine Operator: MICHEL MEASUREMENT RESULTS: Intervals: Rate: 74 PA: 194 QRSD: 84 QT: 400 QTc: 444 [place]: P: 72 PA: 194 QRS: -6 T: 69 INTERPRETIVE STATEMENTS: Normal sinus rhythm Normal ECG Compared to ECG 09/15/2020 12:00:52 Sinus bradycardia no longer present Electronically Signed On 08-13-23 12:32:08 CDT by Marin Marquez
--- NOTE | 2023-08-13 12:52 | CON ---
Date of Consultation: 08/11/2023 Reason For Consultation: Chest pain. History Of Present Illness: This is a 77-year-old female with history of hypertension, dyslipidemia, presented to emergency room with chest pain, substernal, radiates to the left shoulder and arm, not related to exertion. No diaphoresis, nausea, vomiting, or diarrhea. Past Medical History: As outlined above in the HPI. Medications: Refer to reconciliation sheet for detailed list. Allergies: MEPERIDINE AND PENICILLIN. Family History: No premature coronary artery disease or cancer. Social History: She does not smoke or drink. Does not use any drugs. Review of Systems: All systems reviewed and they were negative except what mentioned in HPI. Physical Examination: Vital Signs: Reviewed. Head and Neck: Pupils are equal, reactive to light. Intact eye movements. No JVD. No cervical lym phadenopathy. Neck is supple. Thyroid is not enlarged. Lungs: Clear to auscultation bilaterally. No rhonchi, wheezing, or crackles. No accessory muscle u se. Heart: Regular rate and rhythm. No extra sounds. Abdomen: Soft, nontender. Bowel sounds positive. No organomegaly. No masses or hernia. No rigidi ty or rebound. Extremities: No edema, clubbing, or cyanosis. Intact pulses. Skin: No rash. Neurologic: Alert, awake, oriented x3. No acute focal deficits appreciated. Investigations: Troponins x4 were negative. BUN 13, creatinine 0.7, and hemoglobin is 13.2. Assessment And Recommendations: 1.Chest pain. Cardiac enzymes are negative. Pain is resolved. The patient can be released from Ca rdiology standpoint and follow up as an outpatient for a stress test and echo. She has a cardiologis t to follow up with. 2.Hypertension. Blood pressure is controlled. Continue current management. SR/MODL Voice ID: [id number] Report ID: [id number]
== END 2023-08-11 19:27 | disposition home or self-care (01) ==
LOC: ER 18:41 → 2ND 21:29
PROVIDERS: ADMIT Hospitalist; ATTEND Hospitalist
DX: R07.81 Pleurodynia (principal); I16.1 Hypertensive emergency; E55.9 Vitamin D deficiency, unspecified; I10 Essential (primary) hypertension; E78.5 Hyperlipidemia, unspecified; R11.0 Nausea; R06.02 Shortness of breath; Z88.0 Allergy status to penicillin; Z88.6 Allergy status to analgesic agent; Z91.018 Allergy to other foods
CPT/HCPCS: 85025; 80048; 36415; 83735 ×2; 85610; 80061; 80076; 84484 ×4; 83690; 80053; 83880; 71275; 74175; 71045; 96375; 96372; 96374; 99285; Q9967; J1650 ×2; J2405; J7030; 93005; G0378